=== PATIENT | female | born 1965 | race Caucasian/White ===

== ENCOUNTER 2017-07-06 15:31 | Emergency (ER) | payer OTHER ==
[~2017-07-06] VITALS: Ht 162.6 cm; Wt 79.4 kg
[~2017-07-06 15:31] MED LIST: ACETAMINOPHEN-1 EAC1 PO; ALBUTEROL2.5 MG/31 INH; AMBIEN 5 MG TABL5 M1 PO; AMLODIPINE BESY10 MG PO; AMOXICILLIN875 MG PO; ASPIR 8181 MG PO; ATORVASTATIN CA40 MG PO; BP MEDS; BREO ELLIPTA 11 EACH INH; CARAFATE 1 GM TA1 G1 PO; CARVEDILOL12.5 MG PO; CIPROFLOXACIN500 M1 PO; CLONIDINE0.1 PO; COREG25 MG PO; COREG6.25 MG PO; CRESTOR10 MG PO; DIFLUCAN150 MG PO; DUONEB 2.5-0.5 M3 ML INH; FLAGYL500 MG PO; HYDROCHLOROTHIA25 M2 PO; HYDROCODONE-AP1 EAC6 PO; IBUPROFEN 400400 M2 PO; KEFLEX500 MG PO; KLOR-CON 1010 MEQ PO; LASIX 20 MG TAB20 MG PO; LEVAQUIN 500 M500 M1 PO; LEVAQUIN 500 M500 M2 PO; LEVAQUIN 500 M500 MG PO; LIPITOR 20 MG T20 M1 PO; LORTAB 5 MG/5001 TA1 PO; MAXZIDE-25 MG1 EACH PO; MUCINEX TA600 MG/TA1 PO; NORVASC5 MG PO; NYSTATIN 1100000 U/M SW&SWALLOW; OMEPRAZOLE; OPANA10 MG PO; OXYCONTIN10 M1 PO; PERCOCET 10-321 EACH PO; PERCOCET 5-3251 EACH PO; PERCOCET PO; PHENERGAN 25 MG25 M1 PO; PREDNISONE 10 M10 MG PO; PREDNISONE 20 M20 MG PO; PREDNISONE50 MG PO; PRILOSEC 20 MG20 MG PO; PROAIR HFA8.5 GM INH; PROTONIX40 M1 PO; PROTONIX40 M2; PYRIDIUM200 MG PO; SPIRIVA; TRAMADOL 50 MG50 MG PO; TRIAMTERENE/HCT1 CA1 PO; VALIUM5 MG PO; VITAMIN B-1100 M1 PO; ZOFRAN ODT4 MG PO; ZOFRAN4 MG PO
[2017-07-06] MEDS ORDERED: POTASSIUM20 PO (15:41)
[2017-07-06 16:10] LABS: ABSOLUTE BASOPHILS 0.1 thou/uL (0.0-0.2); ABSOLUTE EOSINOPHILS 0.3 thou/uL (0.0-0.7); ABSOLUTE LYMPHOCYTES 3.3 thou/uL (0.8-5.3); ABSOLUTE MONOCYTES 0.6 thou/uL (0.0-1.2); ABSOLUTE NEUTROPHILS 6.3 thou/uL (1.6-8.1); BASOPHILS 0.7 %; EOSINOPHILS 2.5 %; HEMATOCRIT 41.5 % (37.0-47.0); HEMOGLOBIN 14.2 gm/dL (12.0-15.0); LYMPHOCYTES 31.1 %; MCHC 34.3 g/dL (28.0-37.0); MCV 96.2 fL (80.0-100.0); MONOCYTES 5.5 %; MPV 10.1 fl. (7.2-11.1); NUCLEATED RBCS 0 /100WBC; PLATELET COUNT* 209 thou/uL (150-400); POLYS 60.2 %; RBC 4.31 mil/uL (4.20-5.00); RDW-CV 13.8 % (10.5-14.5); WBC 10.5 thou/uL (4.0-11.0)
[2017-07-06 16:24] LABS: APTT 27.8 Seconds (25.0-31.3); PROTIME 9.3 Seconds (9.20-11.50)
[2017-07-06 17:01] LABS: ANION GAP 9 mmol/L (7-16); BUN 12 mg/dL (7-18); CALCIUM 9.1 mg/dL (8.5-10.1); CHLORIDE 102 mmol/L (98-107); CO2 30 mmol/L (21-32); GLUCOSE 109 mg/dL (70-99); POTASSIUM 3.7 mmol/L (3.5-5.1); SODIUM 141 mmol/L (136-145)
[2017-07-06 17:11] LABS: ALBUMIN 3.6 g/dL (3.4-5.0); ALKALINE PHOSPHATASE 75 U/L (46-116); LIPASE 104 U/L (73-393); NT-PRO BRAIN NAT PEPTIDE 719 pg/mL (<300); SGOT 22 U/L (15-37); SGPT 33 U/L (30-65); TOTAL BILIRUBIN 0.5 mg/dL (<0.1-1.0); TOTAL PROTEIN 7.1 g/dL (6.4-8.2); TROPONIN-I LEVEL <0.06 ng/mL (<0.06)
[2017-07-06 17:14] LABS: BE 7.4 mmol/L (-2 to +3); HCO3 31.2 mmol/L (22.0-26.0); PCO2 40.7 mmHg (35.0-45.0); pH 7.502 (7.340-7.450)
[2017-07-06] MEDS ORDERED: MEDROLDOSEPACK PO (18:28)
[2017-07-06] MEDS ORDERED: AZITHROMYCIN 2250 MG PO (18:28)
[2017-07-06] MEDS ORDERED: ACETAMINOPHEN-1 EAC1 PO (18:38)
[2017-07-06 18:40] VITALS: BP 161/71
--- NOTE | 2017-07-07 10:52 | EKG ---
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 : 1965 Requested By: Amparo Franco Order Number: [id number] MD: Alexis Juares Measurements Intervals [place] Rate: 76 P: 0 WV: 204 QRS: 58 QRSD: 91 T: 231 QT: 445 QTc: 501 Interpretive Statements Sinus rhythm Borderline prolonged WV interval Probable LVH with secondary repol abnrm Probable inferior infarct, age indeterminate Anterolateral infarct, age indeterminate Baseline wander in lead(s) V1 Compared to ECG 05/05/2017 09:11:51 Myocardial infarct finding now present Electronically Signed On 07-07-2017 10:52:34 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
== END 2017-07-06 18:42 | disposition home or self-care (01) ==
LOC: M.ERS 15:31
PROVIDERS: Personal Emergency Response Attendant
DX: J44.1 Chronic obstructive pulmonary disease with (acute) exacerbation (principal); I10 Essential (primary) hypertension; F41.9 Anxiety disorder, unspecified; F17.210 Nicotine dependence, cigarettes, uncomplicated; Z90.710 Acquired absence of both cervix and uterus; Z90.49 Acquired absence of other specified parts of digestive tract; Z91.041 Radiographic dye allergy status

== ENCOUNTER 2017-10-10 10:35 | Emergency (ER) | payer OTHER ==
[~2017-10-10] VITALS: Ht 162.6 cm; Wt 81.7 kg
[~2017-10-10 10:35] MED LIST changes: +AZITHROMYCIN 2250 MG PO; +MEDROLDOSEPACK PO; +POTASSIUM20 PO
[2017-10-10] MEDS ORDERED: PREDNISONE50 MG PO (12:29)
[2017-10-10] MEDS ORDERED: LEVAQUIN 750 M750 MG PO (12:29)
[2017-10-10 12:45] VITALS: BP 151/73
--- NOTE | 2017-10-10 17:10 | EKG ---
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: Kelly CASTELLANO : 1965 Requested By: Cherrie Palmer Order Number: [id number] MD: Ted Lee Measurements Intervals [place] Rate: 63 P: 37 MN: 186 QRS: -3 QRSD: 91 T: 157 QT: 471 QTc: 483 Interpretive Statements Sinus rhythm LVH with secondary repolarization abnormality Compared to ECG 07/06/2017 15:37:02 Myocardial infarct finding no longer present Myocardial infarct finding no longer present Electronically Signed On 10-10-2017 17:10:22 CDT by Ted Lee [email or web address] <ELECTRONICALLY SIGNED> By: Ted Lee MD, [facility] 10/10/17 1710 1131 1131 Ted Lee MD, [facility] /EPI
== END 2017-10-10 12:50 | disposition home or self-care (01) ==
LOC: M.ERS 10:35
DX: J40 Bronchitis, not specified as acute or chronic (principal); I10 Essential (primary) hypertension; F41.9 Anxiety disorder, unspecified; J44.9 Chronic obstructive pulmonary disease, unspecified; F17.210 Nicotine dependence, cigarettes, uncomplicated; Z90.49 Acquired absence of other specified parts of digestive tract; Z90.710 Acquired absence of both cervix and uterus; Z91.041 Radiographic dye allergy status

== ENCOUNTER 2018-02-27 14:24 | Inpatient (IN) | payer OTHER ==
[~2018-02-27] VITALS: Ht 162.6 cm; Wt 62.6 kg
--- NOTE | ~2018-02-27 | PROC ---
[address] [address] PROCEDURE REPORT Name: HECTOR RENNER Room: [place] [address] ADM IN .R.#: [id number] Admission: 02/27/18 Attend Phys: Clifton Reid Discharge: Date of : 61 Report #: [id number] THIS REPORT FOR: //name// For GI report, please see Provation report in Perceptive 7 content. By: [id number] Records Staff [facility] /ALEX
--- NOTE | ~2018-02-27 | CON ---
[address] [address] CONSULTATION Name: JUDHECTOR J Room: [place] [address] ADM IN ..#: [id number] Admission: 02/27/18 Attend Phys: Clifton Reid Discharge: Date of : 61 Report #: [id number] THIS REPORT FOR: //name// CC: Arnold Eugene DO DATE OF SERVICE: 03/01/2018 REASON FOR CONSULT: Severe epigastric pain. REQUESTING PHYSICIAN: Jovi Eugene DO. HISTORY OF PRESENT ILLNESS: This is a 52-year-old female with history of cardiomyopathy and pancreatitis in the past who presents with severe epigastric pain. Since admission, the patient had labs, which showed normal lipase of [address] of abdomen and pelvis, which was essentially unremarkable for pancreas and biliary tree. She had history of gallbladder disease and status post cholecystectomy more than 10 years ago. She takes double dose of omeprazole 20 mg b.i.d. for chronic reflux disease. She admits that she has not been scoped for more than 10 years ago. PAST MEDICAL HISTORY: Significant for history of pancreatitis, gastroesophageal reflux disease, cardiomyopathy, hyperlipidemia, insomnia, chronic pain, and asthma. She also has history of gallbladder disease, status post cholecystectomy, hysterectomy, left nephrectomy in 1999, status post ICD placement and coronary artery disease status post ID in 09/2016. ALLERGIES: SIGNIFICANT TO CODEINE AND ATROVENT. MEDICATIONS: Please refer to hospital [facility]. SOCIAL HISTORY: The patient is a former smoker, but has not smoked more than a year ago. She denies alcohol use. FAMILY HISTORY: Negative for GI malignancy. PHYSICAL EXAMINATION: VITAL SIGNS: Reveals blood pressure of 118/55, respirations 18, pulse 60, temperature 98.2. LUNGS: Clear. CARDIOVASCULAR: Regular. ABDOMEN: Soft, tender to palpation in epigastric region. Bowel sounds are positive. NEUROLOGIC: The patient is alert and oriented x 3[place] [address] CONSULTATION Name: HECTOR RENNER Room: [address] IN [facility]#: [id number] Admission: 02/27/18 Attend Phys: Clifton Reid Discharge: Date of : 61 Report #: [id number] LABORATORY DATA: Reveal sodium of 136, potassium 3.9, BUN is 13, creatinine is 1.1, glucose is 112. Liver function tests are within normal limits. WBC is 8.3 with hemoglobin of 14 and platelet of 127. IMAGING: CT of abdomen and pelvis was obtained as discussed above. ASSESSMENT AND PLAN: The patient with long history of gastroesophageal reflux disease, on double dose of omeprazole 20. We will proceed with upper endoscopy as her pain may be due to esophageal spasm due to poor reflux control, gastritis, esophagitis, gastroduodenal ulcer. The patient also admits that she has not had a colonoscopy for more than 10 years, we will consider that as outpatient. By: 1431 [id number] Mayorga MD /ligia
[~2018-02-27 14:24] MED LIST changes: +LEVAQUIN 750 M750 MG PO
[2018-02-27 14:27] VITALS: BP 148/64
[2018-02-27] MEDS ORDERED: NORCO 5-325 TA1 EACH PO (14:33)
[2018-02-27] MEDS ORDERED: AMBIEN 5 MG TABL5 M1 PO (14:33)
[2018-02-27] MEDS ORDERED: TRAMADOL 50 MG50 MG PO (14:33)
[2018-02-27 14:58] LABS: ABSOLUTE BASOPHILS 0.1 thou/uL (0.0-0.2); ABSOLUTE EOSINOPHILS 0.3 thou/uL (0.0-0.7); ABSOLUTE LYMPHOCYTES 3.6 thou/uL (0.8-5.3); ABSOLUTE MONOCYTES 0.5 thou/uL (0.0-1.2); ABSOLUTE NEUTROPHILS 6.5 thou/uL (1.6-8.1); EOSINOPHILS 2.4 %; HEMATOCRIT 46.5 % (37.0-47.0); LYMPHOCYTES 32.6 %; MCH 32.6 pg (26.0-34.0); MCHC 34.3 g/dL (28.0-37.0); MCV 94.9 fL (80.0-100.0); MONOCYTES 4.9 %; MPV 9.2 fl. (7.2-11.1); NUCLEATED RBCS 0 /100WBC; PLATELET COUNT* 197 thou/uL (150-400); POLYS 59.1 %; RDW-CV 14.3 % (10.5-14.5)
[2018-02-27 15:04] LABS: ANION GAP 8 mmol/L (7-16); BUN 13 mg/dL (7-18); CHLORIDE 99 mmol/L (98-107); CO2 29 mmol/L (21-32); CREATININE 1.1 mg/dL (0.6-1.3); GLUCOSE 112 mg/dL (70-99); POTASSIUM 3.9 mmol/L (3.5-5.1); SODIUM 136 mmol/L (136-145)
[2018-02-27 15:11] LABS: PROTIME 10.1 Seconds (9.20-11.50)
[2018-02-27 15:15] LABS: ALBUMIN 3.6 g/dL (3.4-5.0); ALKALINE PHOSPHATASE 84 U/L (46-116); LIPASE 120 U/L (73-393); NT-PRO BRAIN NAT PEPTIDE 356 pg/mL (<300); SGOT 30 U/L (15-37); SGPT 46 U/L (30-65); TOTAL BILIRUBIN 0.4 mg/dL (<0.1-1.0); TOTAL PROTEIN 7.3 g/dL (6.4-8.2); TROPONIN-I LEVEL <0.06 ng/mL (<0.06)
--- NOTE | 2018-02-27 17:17 | EKG ---
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 : 1965 Requested By: Mayank Bowen Order Number: [id number] MD: Alexis Juares Measurements Intervals [place] Rate: 71 P: 61 MD: 201 QRS: 31 QRSD: 95 T: 217 QT: 492 QTc: 535 Interpretive Statements Sinus rhythm Repol abnrm, severe global ischemia (LM/MVD) Prolonged QT interval Compared to ECG 10/10/2017 11:31:50 Possible ischemia now present Prolonged QT interval now present Left ventricular hypertrophy no longer present Electronically Signed On 02-27-2018 17:17:44 CDT by Alexis Juares [email or web address] <ELECTRONICALLY SIGNED> By: Alexis Juares MD, FACC 02/27/18 1717 1429 1429 Alexis Juares MD, [facility] /EPI
[2018-02-27 20:30] VITALS: BP 142/59
[2018-02-27 20:37] VITALS: BP 103/57
[2018-02-28 00:33] VITALS: BP 118/62
[2018-02-28 04:46] VITALS: BP 122/60
[2018-02-28 08:28] VITALS: BP 117/70
[2018-02-28 12:00] VITALS: BP 117/52
[2018-02-28 16:00] VITALS: BP 119/78
[2018-02-28 16:12] LABS: AMYLASE 43 U/L (25-115); LIPASE 100 U/L (73-393)
[2018-02-28 20:00] VITALS: BP 144/60
[2018-03-01] VITALS (7 sets, daily range): BP systolic 109–132; BP diastolic 53–79
[2018-03-01 08:51] LABS: ABSOLUTE EOSINOPHILS 0.2 thou/uL (0.0-0.7); ABSOLUTE LYMPHOCYTES 2.1 thou/uL (0.8-5.3); ABSOLUTE MONOCYTES 0.5 thou/uL (0.0-1.2); ABSOLUTE NEUTROPHILS 5.4 thou/uL (1.6-8.1); BASOPHILS 0.4 %; EOSINOPHILS 2.9 %; HEMATOCRIT 41.4 % (37.0-47.0); LYMPHOCYTES 25.8 %; MCH 32.5 pg (26.0-34.0); MCHC 33.7 g/dL (28.0-37.0); MCV 96.4 fL (80.0-100.0); MONOCYTES 5.8 %; MPV 9.4 fl. (7.2-11.1); NUCLEATED RBCS 0 /100WBC; PLATELET COUNT* 127 thou/uL (150-400); POLYS 65.1 %; RDW-CV 14.1 % (10.5-14.5); WBC 8.3 thou/uL (4.0-11.0)
--- NOTE | 2018-03-01 15:02 | EKG ---
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 : 1965 Requested By: Jovi Eugene Order Number: [id number] Sharon MD: Akbar Faust Measurements Intervals [place] Rate: 56 P: 53 VA: 209 QRS: 2 QRSD: 92 T: 184 QT: 489 QTc: 473 Interpretive Statements Sinus rhythm Borderline prolonged [place] interval LVH with secondary repolarization abnormality Compared to ECG 02/27/2018 14:29:40 Left ventricular hypertrophy now present Possible ischemia no longer present Prolonged QT interval no longer present Electronically Signed On 03-01-2018 15:02:38 CDT by Akbar Faust [email or web address] <ELECTRONICALLY SIGNED> By: Akbar Faust MD, FACC 03/01/18 1502 0626 0626 Akbar Faust MD, FACC /EPI
[2018-03-02] VITALS (7 sets, daily range): BP systolic 107–154; BP diastolic 55–84
[2018-03-02 11:54] LABS: HEMATOCRIT 39.7 % (37.0-47.0); HEMOGLOBIN 13.3 gm/dL (12.0-15.0); MCH 31.9 pg (26.0-34.0); MCHC 33.5 g/dL (28.0-37.0); MCV 95.3 fL (80.0-100.0); MPV 9.7 fl. (7.2-11.1); NUCLEATED RBCS 0 /100WBC; PLATELET COUNT* 128 thou/uL (150-400); RBC 4.17 mil/uL (4.20-5.00); RDW-CV 14.1 % (10.5-14.5); WBC 13.4 thou/uL (4.0-11.0)
[2018-03-02 12:09] LABS: ALBUMIN 3.4 g/dL (3.4-5.0); POTASSIUM 4.3 mmol/L (3.5-5.1); TOTAL BILIRUBIN 0.4 mg/dL (<0.1-1.0)
[2018-03-02 12:47] LABS: ABSOLUTE LYMPHOCYTES 1.1 thou/uL (0.8-5.3); ABSOLUTE NEUTROPHILS 12.3 thou/uL (1.6-8.1); PLATELET ESTIMATE ADEQUATE
--- NOTE | 2018-03-02 18:04 | 2DMMODE ---
[place] [address] 2 D/M-MODE ECHOCARDIOGRAM Name: HECTOR RENNER Room: [facility] ADM IN [facility]#: [id number] Admission: 02/27/18 Attend Phys: Jovi Eugene Discharge: Date of : 61 Date of Service: 03/02/18 1804 Report #: [id number] THIS REPORT FOR: //name// APPROVED REPORT Study performed: 03/02/2018 16:42:46 EXAM: Comprehensive 2D, Doppler, and color-flow Echocardiogram Patient Location: In-Patient Room #: 227 BSA: 1.86 HR: 93 bpm BP: 127/69 mmHg Other Information Study Quality: Fair Indications Abnormal ECG 2D Dimensions IVSd: 11.71 (7-11mm) LVOT Diam: 19.75 (18-24mm) LVDd: 35.71 mm PWd: 9.67 (7-11mm) Ascending Ao: 24.84 (22-36mm) LVDs: 23.98 (25-40mm) Aortic Root: 22.05 mm Volumes Left Atrial Volume (Systole) LA ESV Index: 28.30 mL/m2 Aortic Valve AoV Peak Paras.: 3.06 m/s AO Peak Gr.: 37.55 mmHg LVOT Max P.50 mmHg AO Mean Gr.: 21.31 mmHg LVOT Mean P.38 mmHg LVOT Max V: 1.27 m/s AO V2 VTI: 61.60 cm LVOT Mean V: 0.85 m/s HANS (VTI): 1.53 cm2 LVOT V1 VTI: 30.72 cm Mitral Valve MV Peak Gr.: 12.56 mmHg MV Mean Gr.: 7.00 mmHg MV Decel. Time: 209.16 ms MV PHT: 60.66 [place] [address] 2 D/M-MODE ECHOCARDIOGRAM Name: HECTOR RENNER Room: [address] IN [facility].#: [id number] Admission: 02/27/18 Attend Phys: Jovi Eugene Discharge: Date of : 61 Date of Service: 03/02/18 1804 Report #: [id number] MVA (PHT): 3.63 cm2 TDI Medial E' Paras.: 0.07 m/s Lateral E' Paras.: 0.08 m/s Pulmonary Valve PV Peak Paras.: 1.49 m/s PV Peak Gr.: 8.85 mmHg Tricuspid Valve RAP Estimate: 5.00 mmHg TR Peak Gr.: 36.45 mmHg RVSP: 41.45 mmHg PA Pressure: 41.45 mmHg Left Ventricle The left ventricle is normal size. There is normal LV segmental wall motion. There is normal left ventricular wall thickness. Left ventricular systolic function is normal. The left ventricular ejection fraction is within the normal range. LVEF is 60%. The left ventricular diastolic function is normal. Right Ventricle The right ventricle is normal size. The right ventricular systolic function is normal. Device lead is present in the right ventricle. Atria The left atrium size is normal. The right atrium size is normal. Aortic Valve Mild aortic valve sclerosis. No aortic regurgitation is present. There is no aortic valvular stenosis. Mitral Valve The mitral valve is normal in structure. Mild to moderate mitral regurgitation. No evidence of mitral valve stenosis. Tricuspid Valve The tricuspid valve is normal in structure. Mild tricuspid regurgitation. Pulmonic Valve The pulmonary valve is normal in structure. There is no pulmonic valvular regurgitation. [place] [address] 2 D/M-MODE ECHOCARDIOGRAM Name: HECTOR RENNER Room: [address] IN [facility]#: [id number] Admission: 02/27/18 Attend Phys: Jovi Eugene Discharge: Date of : 61 Date of Service: 03/02/18 1804 Report #: [id number] The aortic root is normal in size. IVC is normal in size and collapses >50% with inspiration. Pericardium There is no pericardial effusion. <Conclusion> The left ventricle is normal size. Left ventricular systolic function is normal. The left ventricular ejection fraction is within the normal range. LVEF is 60%. The right ventricle is normal size. The left atrium size is normal. Mild aortic valve sclerosis. No aortic regurgitation is present. There is no aortic valvular stenosis. The mitral valve is normal in structure. Mild to moderate mitral regurgitation. No evidence of mitral valve stenosis. The tricuspid valve is normal in structure. Mild tricuspid regurgitation. The aortic root is normal in size. IVC is normal in size and collapses >50% with inspiration. There is no pericardial effusion. There is normal LV segmental wall motion. Device lead is present in the right ventricle. <ELECTRONICALLY SIGNED> By: Josiah Cee MD, FACC 03/02/181803 03 03 Josiah Cee MD, FACC /INF
[2018-03-03] VITALS (9 sets, daily range): BP systolic 123–198; BP diastolic 71–101
[2018-03-03] MEDS ORDERED: LISINOPRIL40 MG PO (11:57)
[2018-03-03] MEDS ORDERED: ALPRAZOLAM0.5 M2 PO (11:57)
[2018-03-03] MEDS ORDERED: BENTYL 20 MG TA20 M1 PO (11:57)
[2018-03-03] MEDS ORDERED: NORVASC5 MG PO ×2 (11:58→14:36)
[2018-03-03] MEDS ORDERED: ALBUTEROL2.5 MG/31 INH (12:40)
--- NOTE | 2018-03-03 16:52 | EKG ---
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: : 1965 Requested By: Jovi Eugene Order Number: [id number] Sharon MD: Josiah Cee Measurements Intervals [place] Rate: 77 P: 50 [place]: 200 QRS: -8 QRSD: 92 T: 188 QT: 423 QTc: 479 Interpretive Statements Sinus rhythm LVH with secondary repolarization abnormality; consider ischemia Anterior Q waves, possibly due to LVH Compared to ECG 03/01/2018 06:26:50 Q waves now present Electronically Signed On 03-03-2018 16:52:38 CDT by Josiah Cee [email or web address] <ELECTRONICALLY SIGNED> By: Josiah Cee MD, [facility] 03/03/18 1652 1748 1748 Josiah Cee MD, [facility] /EPI
[2018-03-04] VITALS: BP 100/49
[2018-03-04 04:00] VITALS: BP 139/68
[2018-03-04 07:53] VITALS: BP 135/78
[2018-03-04 12:00] VITALS: BP 144/64
[2018-03-04 16:00] VITALS: BP 115/57
[2018-03-04 20:00] VITALS: BP 122/55
[2018-03-05] VITALS: BP 121/67
[2018-03-05 04:00] VITALS: BP 130/61
[2018-03-05 08:00] VITALS: BP 158/69
[2018-03-05 11:35] VITALS: BP 106/57
[2018-03-05 15:35] VITALS: BP 136/72
[2018-03-05 20:00] VITALS: BP 164/81
[2018-03-06] VITALS: BP 127/61
[2018-03-06 04:00] VITALS: BP 141/69
[2018-03-06 04:51] LABS: ABSOLUTE LYMPHOCYTES 1.1 thou/uL (0.8-5.3); ABSOLUTE MONOCYTES 0.3 thou/uL (0.0-1.2); ABSOLUTE NEUTROPHILS 9.2 thou/uL (1.6-8.1); BASOPHILS 0.1 %; HEMATOCRIT 34.7 % (37.0-47.0); HEMOGLOBIN 11.8 gm/dL (12.0-15.0); LYMPHOCYTES 10.3 %; MCH 32.4 pg (26.0-34.0); MCHC 34.1 g/dL (28.0-37.0); MCV 95.2 fL (80.0-100.0); MONOCYTES 2.4 %; MPV 11.5 fl. (7.2-11.1); NUCLEATED RBCS 0 /100WBC; PLATELET COUNT* 142 thou/uL (150-400); POLYS 87.2 %; RBC 3.65 mil/uL (4.20-5.00); RDW-CV 14.1 % (10.5-14.5); WBC 10.6 thou/uL (4.0-11.0)
[2018-03-06 05:16] LABS: CALCIUM 8.4 mg/dL (8.5-10.1); CREATININE 0.9 mg/dL (0.6-1.3); POTASSIUM 4.1 mmol/L (3.5-5.1)
[2018-03-06 08:00] VITALS: BP 160/60
--- NOTE | 2018-03-06 08:00 | CON ---
[address] [address] CONSULTATION Name: HECTOR RENNER Room: [place] [address] ADM IN .R.#: [id number] Admission: 02/27/18 Attend Phys: Clifton Reid Discharge: Date of : 61 Report #: [id number] THIS REPORT FOR: //name// CC: Arnold Eugene DATE OF SERVICE: 03/05/2018 REASON FOR CONSULTATION: Pneumonia. DISCUSSION: The patient is a 52-year-old woman who has a history of tobacco abuse. Probably also has some underlying obstructive lung disease. She has a history of pancreatitis in the past, as well as hypertrophic cardiomyopathy and does have defibrillator in place. She presented to the emergency department with complaints of pain around her epigastric area going through to the back. Pain was similar to what she had in the past with pancreatitis and she was concerned. Did have a fairly extensive evaluation done while she was here. This included both GI and her cardiology. Generally was thought to be stable. She had a fairly unremarkable EGD other than retained food noted. However, her gastric emptying time was normal. Yesterday, she notes she was feeling overall more congested. Though she has had some cough, really was not coughing up any sputum. Again having some bloody secretions. She had a CT angiogram done yesterday. It was negative for PE. However, does show some nodular infiltrates and small pleural effusions. We were asked to see her. Do note, however, this scan was not compared to CT scan done last year. She has been up to 2 packs of cigarettes per day in the past. Now, however, she smokes about a cigarette per week. Hypertrophic cardiomyopathy is noted. She had cardiac arrest in the spring. This was also complicated by bilateral pneumothoraces and she was on the ventilator for a period of time. This was at [facility] and group did see her at that time. She was hospitalized here almost a year ago and also was on the ventilator short term, but was able to be successfully extubated. Normally at home, she is not on any inhalers. She is not on any oxygen. She has seen a research instrumentation technician at [facility]. Had recent breathing test done and was told "things were okay." She denies having any outpatient CT scans done. She does have a nebulizer at home. However, she notes typically she does not have significant issues. Tends to be worse fall and winter months. She has many grandchildren. When they are ill, she does catch it easily. She has had her flu shot. She has not had prior bronchoscopies in the past for any reason[place] [address] CONSULTATION Name: HECTOR RENNER Kelly Room: 227-[address] [facility] IN .R.#: [id number] Admission: 02/27/18 Attend Phys: Clifton Reid Discharge: Date of : 61 Report #: [id number] PAST MEDICAL HISTORY: Besides the hypertrophic cardiomyopathy with subsequent defibrillator placement is also remarkable for a left nephrectomy done in the year 1999. She was a kidney donor for her son. She has also had a prior hysterectomy, cholecystectomy. HOME MEDICATIONS: Have been the p.r.n. albuterol, atorvastatin, Coreg, Norvasc, lisinopril, baby aspirin, p.r.n. tramadol, p.r.n. [place], and p.r.n. alprazolam. SOCIAL HISTORY: She is . Her smokes as well, but they will typically smoke outside. FAMILY HISTORY: Positive for kidney disease. Also lung cancer in the family and breast cancer, as well as COPD. REVIEW OF SYSTEMS: A 12-point ROS was done. No positives as above. She has continued intermittently to have pain over the last year or so, which is intermittent. Apparently is essentially substernal epigastric and will radiate to the back. At times, it is excruciating. Other times, it is not too bad. It is intermittent, does not appear to be anything in particular that brings it on. She typically does not have much in the way of any cough or sputum production. She has never had hemoptysis in the past. She has not noted any blood in her stools. She does tend to fill up when she eats. She has not had any recent vomiting. Had not felt like she has had any actual fevers at home. No lower extremity edema. PHYSICAL EXAMINATION: GENERAL APPEARANCE: A woman who looks stated age, comfortable at rest. HEENT: Head is normocephalic and sclerae are nonicteric. Mucous membranes are negative for thrush. NECK: Negative for adenopathy. No JVD is noted. No supraclavicular adenopathy is noted. Her defibrillator is palpable on her left upper chest wall anteriorly. HEART: Regular. No S3 is heard. She has a grade 1/6 systolic murmur. LUNGS: Sounds reveal some rhonchi heard primarily in the lower lung rojas. Does not clear with cough. There is no dullness to percussion. No E to A changes. No chest wall abnormalities are noted. SKIN: Warm and dry. She has no clubbing. ABDOMEN: Mildly obese, but soft without hepatosplenomegaly. EXTREMITIES: Lower extremities are negative for significant edema. SKIN: Warm and dry. NEUROLOGIC: She is alert and oriented times 3. LABORATORY AND X-RAY FINDINGS: X-rays were reviewed. Her initial chest x-ray coming in was negative for acute findings. CT angiogram done yesterday is noted, was negative for PE. She does have small pleural [place] [address] CONSULTATION Name: JUDHECTOR Kelly Room: [address] IN [facility]#: [id number] Admission: 02/27/18 Attend Phys: Clifton Reid Discharge: Date of : 61 Report #: [id number] have infiltrative changes seen in lower lung rojas, left greater than the right. Some of these are somewhat nodular. Reviewing CT, which was done just over a year ago, some of these findings are similar. Some of them; however, more pronounced. She has had no cultures done this admission. On her chemistry, last one, her sodium was 137, potassium 4.3, BUN of 10 with a creatinine of 1.0. Coag studies several days ago revealed a normal INR. White blood cell count several days ago was 13,400 with a hemoglobin of 13.3, hematocrit of 39.7, platelets 128,000. CRP several days ago was 11.8. Echocardiogram done this admission revealed normal systolic function. EF was 60%. She had normal LV wall thickness. She had gvfr-bv-mahoktpy mitral regurgitation. No aortic disease. IMPRESSION: 1. Non-massive hemoptysis. I suspect she has a lower respiratory tract infection. At baseline, she has some chronic changes on her chest x-ray/CT scan. It will be important to treat the infection and have followup imaging in the future. May be viral. 2. Chronic obstructive pulmonary disease, suspected mild based on her history. 3. History of hypertrophic cardiomyopathy. Her most recent echocardiogram was fairly unremarkable. Does have a history of prior cardiopulmonary arrest. 4. History of bilateral pneumothoraces. 5. Remote history of pancreatitis. 6. History of tobacco abuse. Still occasionally smokes. RECOMMENDATIONS: 1. Agree with coverage with antibiotics. She is currently on oral steroids, but we will add 24 hours of IV steroids. 2. We will also check a respiratory viral panel. 3. Chest x-ray PA and lateral tomorrow. 4. Follow up lab tomorrow. 5. Long-term needs some additional imaging done. Followup CT scan etc. <ELECTRONICALLY SIGNED> By: Daphne Abarca MD 03/06/18 0800 1114 0233Daphne Abarca MD /nt
--- NOTE | 2018-03-06 11:39 | CON ---
[address] [address] CONSULTATION Name: HECTOR RENNER Kelly Room: [place] [address] ADM IN .R.#: [id number] Admission: 02/27/18 Attend Phys: Clifton Reid Discharge: Date of : 61 Report #: [id number] THIS REPORT FOR: //name// CC: [facility] Cardiology Consultation INDICATION: Acute epigastric pain. HISTORY OF PRESENT ILLNESS: The patient is a 52-year-old white female who is well known to myself. She has a history of hypertrophic obstructive cardiomyopathy that we have been managing medically. She has a history out of hospital ventricular arrest, status post ICD placement for secondary prevention. By echocardiogram, she has normal LV systolic function. She has a [id number] gradient across left ventricular outflow tract. On physical exam today, her murmur has not changed appreciably. She reports acute onset epigastric pain yesterday at 1:30 p.m. The pain has been persistent. Her troponins are all less than 0.06. Her EKG shows sinus rhythm with LVH and repolarization abnormalities, but is not significantly changed from her baseline EKG. She has been given multiple medications including GI cocktail without relief of her pain. She is without other cardiac complaint at this time. PAST MEDICAL HISTORY: 1. Coronary artery disease. 2. Hypertension. 3. Hyperlipidemia. 4. Hypertrophic obstructive cardiomyopathy. 5. Remote history of pancreatitis. PAST SURGICAL HISTORY: 1. Appendectomy. 2. Nephrectomy. 3. Cholecystectomy. 4. Tonsillectomy. ALLERGIES: None. CURRENT MEDICATIONS: Carvedilol 25 mg p.o. b.i.d., Prilosec 20 mg p.o. b.i.d., aspirin 81 mg daily, Lipitor 20 mg daily. SOCIAL HISTORY: The patient is . She smokes half pack of cigarettes daily. She drinks 2-4 [place] [address] CONSULTATION Name: HECTOR RENNER Room: [address] IN [facility]#: [id number] Admission: 02/27/18 Attend Phys: Clifton Reid Discharge: Date of : 61 Report #: [id number] REVIEW OF SYSTEMS: On 14-point review of systems, she reports cough, history of asthma, midepigastric pain, dyspnea, history of heart murmur, CONTRAST ALLERGY, history of anxiety without depression, and dentures. Otherwise, 14-point review of systems unremarkable. PHYSICAL EXAMINATION: VITAL SIGNS: Stable. Blood pressure 117/52, pulse 55 and regular. GENERAL: This is a pleasant lady, in mild distress from her mid epigastric discomfort. HEENT: Normocephalic, atraumatic. Pupils equal, round, react to light. Extraocular muscles intact. Mucous membranes are moist. NECK: Shows no jugular venous distention. There are no carotid bruits. CHEST: Reveals clear lung rojas. CARDIAC: Reveals a regular rhythm with soft grade 1 to 2/6 systolic ejection murmur, heard best at the right upper sternal border. There is no gallop. ABDOMEN: Reveals significant tenderness in the epigastric region. There is no rebound. Bowel sounds are present. EXTREMITIES: Show no clubbing, cyanosis or edema. Peripheral pulses palpable. DIAGNOSTIC DATA: A 12-lead EKG shows sinus rhythm with left ventricular hypertrophy and repolarization abnormalities, which is at her baseline. Troponins as outlined above are unremarkable. IMAGING DATA: CT abdomen shows evidence of gas in the pancreatic duct. IMPRESSION AND RECOMMENDATIONS: 1. Midepigastric pain, noncardiac. 2. Hypertrophic obstructive cardiomyopathy, stable. 3. Hypertension, stable. 4. Hyperlipidemia. Continue atorvastatin as an outpatient. 5. Implantable cardioverter defibrillator functioning normally by remote interrogations. 6. Tobacco use, cessation discussed. 7. The patient is stable from cardiac standpoint. We will recommend gastroenterological evaluation. <ELECTRONICALLY SIGNED> By: Akbar Faust MD, FACC 03/06/18 1139 1520 [id number] Faust MD, FACC /nt
[2018-03-06] MEDS ORDERED: DOXYCYCLINE 10100 MG PO (11:50)
[2018-03-06] MEDS ORDERED: PREDNISONE 10 M10 MG PO (11:51)
[2018-03-06 12:00] VITALS: BP 198/101
[2018-03-09 23:10] LABS: ADENOVIRUS Negative (Negative); INFLUENZA A Negative (Negative); INFLUENZA B Negative (Negative); METAPNEUMOVIRUS Negative (Negative); PARAINFLUENZA 1 Negative (Negative); PARAINFLUENZA 2 Negative (Negative); PARAINFLUENZA 3 Negative (Negative); RHINOVIRUS Negative (Negative); RSV A Negative (Negative); RSV B Negative (Negative)
--- NOTE | 2018-03-27 14:58 | PATH ---
[address] [address] PATHOLOGY RPT PROCEDURE Name: HECTOR RENNER Room: [address] IN M.R.#: [id number] Admission: 02/27/18 Date of : 61 Discharge: 03/06/18 Report #: [id number] Path Case #: [id number] [facility] Accession Number: [id number] . 01 Material submitted: . GASTRIC BIOPSY FOR H. PYLORI . 01 Clinical history: . None provided . 02 Diagnosis: Gastric, biopsy: - Mild chronic inactive gastritis. - An H. pylori immunostain is negative (block A1; appropriate controls). . (MAP:[facility]; 03/03/18) [facility]/03/03/2018 . 02 Electronically signed: . Akbar Marie MD, Pathologist NPI- [id number] . 01 Gross description: . Received in formalin labeled "Hector Renner, gastric biopsy for H. pylori," are 3 segments of martinez soft tissue measuring 0.9 x 0.6 x 0.2 cm in aggregate dimensions and ranging from 0.3 to 0.6 cm in maximum dimension. The specimen is submitted entirely in cassette A1. (TSD; 03/02/2018) TOB/TOB . 02 Pathologist provided ICD-10: K29.50 . 02 CPT . 887783, F39012 Specimen Comment: Report sent to ,DR WEEKS,DR LAWSON / Specimen Comment: DR VASQUEZ Performed at: [address], [place], [place] [id number] MD Quinn Munguia MD Phone: [phone] Performed at: [address] [place] [address] [address], [place], [place] [id number] MD Hector Grissom MD Phone: [phone]
== END 2018-03-06 12:15 | disposition home or self-care (01) | DRG 391 ==
LOC: M.ERS 14:24 → M.TBA-ER 15:33 → M.2W 15:33
PROVIDERS: Emergency Medicine; Internal Medicine Cardiovascular Disease; Internal Medicine Pulmonary Disease; ADMIT Internal Medicine
PROC: 0DB78ZX Excision of Stomach, Pylorus, Via Natural or Artificial Opening Endoscopic, Diagnostic (ICD-10-PCS; principal; 2018-03-02)
DX: K29.00 Acute gastritis without bleeding (principal); J96.01 Acute respiratory failure with hypoxia; J15.9 Unspecified bacterial pneumonia; I42.1 Obstructive hypertrophic cardiomyopathy; R04.2 Hemoptysis; J44.0 Chronic obstructive pulmonary disease with (acute) lower respiratory infection; I25.10 Atherosclerotic heart disease of native coronary artery without angina pectoris; E78.5 Hyperlipidemia, unspecified; F17.210 Nicotine dependence, cigarettes, uncomplicated; K21.9 Gastro-esophageal reflux disease without esophagitis; G47.00 Insomnia, unspecified; G89.29 Other chronic pain; I11.0 Hypertensive heart disease with heart failure; J45.909 Unspecified asthma, uncomplicated; I50.9 Heart failure, unspecified; F41.9 Anxiety disorder, unspecified; Z90.5 Acquired absence of kidney; Z90.710 Acquired absence of both cervix and uterus; Z90.49 Acquired absence of other specified parts of digestive tract; Z95.828 Presence of other vascular implants and grafts; I25.2 Old myocardial infarction; Z91.041 Radiographic dye allergy status; Z88.6 Allergy status to analgesic agent; Z88.8 Allergy status to other drugs, medicaments and biological substances; Z84.1 Family history of disorders of kidney and ureter; Z80.1 Family history of malignant neoplasm of trachea, bronchus and lung; Z80.3 Family history of malignant neoplasm of breast; Z82.49 Family history of ischemic heart disease and other diseases of the circulatory system; Z79.899 Other long term (current) drug therapy; Z79.82 Long term (current) use of aspirin; Z23 Encounter for immunization

== ENCOUNTER 2018-04-30 15:07 | Inpatient (IN) | payer OTHER ==
[~2018-04-30] VITALS: Ht 162.6 cm; Wt 80.7 kg
--- NOTE | 2018-04-30 00:15 | NUR ---
ASSESSMENT COMPLETED AT START OF SHIFT. SEE COMPUTER CHARTING FOR FURTHER DETAIL. PT C/O HEADACHE AND CHEST TIGHTNESS. B/P HAS BEEN STABLE. TRACING SR WITH 1ST DEGREE BLOCK ON MONITOR. PT DENIES ANY FURTHER NEEDS AT THIS TIME. CLWR.
[~2018-04-30 15:07] MED LIST changes: +ALPRAZOLAM0.5 M2 PO; +BENTYL 20 MG TA20 M1 PO; +DOXYCYCLINE 10100 MG PO; +LISINOPRIL40 MG PO; +NORCO 5-325 TA1 EACH PO
[2018-04-30 15:12] VITALS: BP 208/108
[2018-04-30] MEDS ORDERED: CARDIZEM CD120 MG PO (15:20)
[2018-04-30 15:37] LABS: ABSOLUTE BASOPHILS 0.1 thou/uL (0.0-0.2); ABSOLUTE EOSINOPHILS 0.3 thou/uL (0.0-0.7); ABSOLUTE LYMPHOCYTES 2.6 thou/uL (0.8-5.3); ABSOLUTE MONOCYTES 0.3 thou/uL (0.0-1.2); ABSOLUTE NEUTROPHILS 3.8 thou/uL (1.6-8.1); BASOPHILS 0.9 %; EOSINOPHILS 4.5 %; HEMATOCRIT 42.2 % (37.0-47.0); HEMOGLOBIN 14.4 gm/dL (12.0-15.0); LYMPHOCYTES 36.6 %; MCH 32.5 pg (26.0-34.0); MCHC 34.2 g/dL (28.0-37.0); MONOCYTES 4.7 %; MPV 10.8 fl. (7.2-11.1); NUCLEATED RBCS 0 /100WBC; PLATELET COUNT* 163 thou/uL (150-400); POLYS 53.3 %; RBC 4.44 mil/uL (4.20-5.00); RDW-CV 14.3 % (10.5-14.5)
[2018-04-30 15:46] LABS: ANION GAP 11 mmol/L (7-16); APTT 29.4 Seconds (25.0-31.3); BUN 5 mg/dL (7-18); CALCIUM 9.2 mg/dL (8.5-10.1); CHLORIDE 104 mmol/L (98-107); CO2 25 mmol/L (21-32); CREATININE 1.1 mg/dL (0.6-1.3); GLUCOSE 100 mg/dL (70-99); POTASSIUM 3.8 mmol/L (3.5-5.1); SODIUM 140 mmol/L (136-145)
[2018-04-30 16:05] LABS: ALBUMIN 3.8 g/dL (3.4-5.0); ALKALINE PHOSPHATASE 83 U/L (46-116); CK-MB MASS 1.3 ng/mL (<0.5-3.6); LIPASE 154 U/L (73-393); MAGNESIUM 1.5 mg/dL (1.8-2.4); NT-PRO BRAIN NAT PEPTIDE 936 pg/mL (<300); SGOT 20 U/L (15-37); SGPT 19 U/L (30-65); TOTAL BILIRUBIN 0.5 mg/dL (<0.1-1.0); TOTAL PROTEIN 7.5 g/dL (6.4-8.2); TROPONIN-I LEVEL <0.06 ng/mL (<0.06)
[2018-04-30 17:05] VITALS: BP 178/86
[2018-04-30 17:15] VITALS: BP 170/86
[2018-04-30 17:20] VITALS: BP 170/85
[2018-04-30 19:00] VITALS: BP 136/76
--- NOTE | 2018-04-30 19:08 | NUR ---
PT. ARRIVED ON UNIT AT APPROX. 1715. PT A/OX4, BP REMAINS ELEVATED AT 170'S/80'S BILATERALLY. ON 2L NC, CHECKED RA SAT. AT 97% BUT PT. C/O OF SOB AT TIMES SO PLACED ON 2L FOR COMFORT. FULL ASSESSMENT AND ADMISSION PROCESS COMPLETED, REFER TO CHARTING. PT. REPORTS HER BP WAS HIGH WHEN SHE WOKE UP THIS MORNING WITH A HORRIBLE HEADACHE. SHE HAS SINCE ALSO BEEN HAVING PAIN IN CHEST WHICH IS PRESSURE IN NATURE AND ON LEFT SIDE OF NECK AND ARM. PT REPORTS COMING IN TO ER AT DR. SHEA REQUEST. IVF'S STARTED PER ORDERS ALONG WITH MAGNESIUM INFUSION. PT. DOES C/O OF NECK/CHEST/HEADACHE SINCE ADMISSION WITH SOME RELIEF FROM ARRIVAL TO ER, BUT STILL PRESENT AT 10/26. PT. ORIENTED TO ROOM/PROCEDURE. CALL LIGHT IN REACH, WILL CONTINUE WITH PLAN OF CARE.
[2018-04-30 19:31] LABS: URINE BILIRUBIN NEGATIVE (Negative); URINE BLOOD NEGATIVE (Negative); URINE CLARITY CLEAR; URINE COLOR YELLOW; URINE GLUCOSE-RANDOM NEGATIVE (Negative); URINE KETONES NEGATIVE (Negative); URINE LEUKOCYTES-REFLEX NEGATIVE (Negative); URINE NITRITE-REFLEX NEGATIVE (Negative); URINE PROTEIN NEGATIVE (Negative); URINE UROBILINOGEN 0.2 E.U./dl (0.2-1.0)
[2018-04-30 19:38] LABS: AMP/METHAMP Negative (Negative); BARBITURATES Negative (Negative); BENZODIAZEPINES POSITIVE (Negative); COCAINE Negative (Negative); METHADONE Negative (Negative); OPIATES POSITIVE (Negative); PCP Negative (Negative); THC POSITIVE (Negative)
[2018-05-01] VITALS (7 sets, daily range): BP systolic 110–161; BP diastolic 56–69
[2018-05-01 04:58] LABS: HEMATOCRIT 40.6 % (37.0-47.0); HEMOGLOBIN 13.7 gm/dL (12.0-15.0); MCH 32.4 pg (26.0-34.0); MCHC 33.8 g/dL (28.0-37.0); RBC 4.23 mil/uL (4.20-5.00); RDW-CV 14.1 % (10.5-14.5); WBC 6.1 thou/uL (4.0-11.0)
[2018-05-01 05:23] LABS: ANION GAP 11 mmol/L (7-16); BUN 6 mg/dL (7-18); CALCIUM 8.7 mg/dL (8.5-10.1); CHLORIDE 105 mmol/L (98-107); CO2 25 mmol/L (21-32); GLUCOSE 103 mg/dL (70-99); POTASSIUM 3.9 mmol/L (3.5-5.1); SODIUM 141 mmol/L (136-145); TROPONIN-I LEVEL <0.06 ng/mL (<0.06)
--- NOTE | 2018-05-01 08:13 | NUR ---
ASSUMED PT. CARE AND RECEIVED REPORT AT 0730. PT A/OX4, VSS, MONITOR ON TRACING SB 1ST. PT. CONTINUE TO C/O OF HEADACHE AND CHEST TIGHTNESS, DESCRIBES "MY HEART FEELS TO BIG FOR MY CHEST". CURRENTLY ON RA @ 93%. PT. DENIES CURRENT SOB, BUT STATES SHE HAS BEEN SOB WITH ACTIVITY AT HOME RECENTLY. PT. EXPRESSES CONCERN OF POOR BP CONTROL AT HOME EVEN THOUGH SHE IS TAKING HER MEDICATIONS PRESCRIBED. FULL ASSESESMENT COMPLETED, REFER TO CHARTING. PT. NPO FOR CV CONSULT THIS MORNING. PT. CONTINUES TO REST POST ASSESSMENT AND APPEARS COMFORTABLE AT THIS TIME. CALL LIGHT IN REACH, WILL CONTINUE WITH PLAN OF CARE.
--- NOTE | 2018-05-01 11:30 | NUR ---
MET WITH PT TO DISCUSS HOME SITUATION/DC PLANNING. PT LIVES WITH SPOUSE AND IS INDEPENDENT AND ACTIVE. USES NO EQUIPMENT AND DENIES ANY NEEDS. STATES FEELING IMPROVED AND HOPES TO GO HOME TOMORROW
--- NOTE | 2018-05-01 13:06 | NUR ---
INFO FOR FOR DC: IF PT DC'D OVER WEEKEND NEED TO CALL KAREN ON CELL PHONE FROM [facility] AT [phone]. IF DC'D ON FRIDAY CONTACT LISBETH HOWELL AT [phone]
--- NOTE | 2018-05-01 16:31 | EKG ---
[place] [address] ELECTROCARDIOGRAM REPORT Name: HECTOR RENNER Room: [address] ADM IN .R.#: [id number] Admission: 04/30/18 Attend Phys: Morena Qiu MD Discharge: Date of : 61 Report #: [id number] THIS REPORT FOR: //name// [facility] ED Test Date: 2018-04-30 Test Time: 15:16:43 Pat Name: HECTOR RENNER Department: Room: [facility] Gender: F Floor Framer: Kelly CASTELLANO : 1965 Requested By: Kin Mendoza Order Number: [id number] MD: Akbar Faust Measurements Intervals [place] Rate: 63 P: 41 [place]: 201 QRS: -3 QRSD: 93 T: 183 QT: 465 QTc: 477 Interpretive Statements Sinus rhythm LVH with secondary repolarization abnormality Compared to ECG 03/01/2018 17:48:00 Possible ischemia no longer present Electronically Signed On 05-01-2018 16:31:44 LAP MAKER by Akbar Faust [email or web address] <ELECTRONICALLY SIGNED> By: Akbar Faust MD, [facility] 05/01/18 1631 1516 1516 Akbar Faust MD, [facility] /EPI
--- NOTE | 2018-05-01 16:35 | EKG ---
[place] [address] ELECTROCARDIOGRAM REPORT Name: HECTOR RENNER Room: [address] ADM IN M.R.#: [id number] Admission: 04/30/18 Attend Phys: Morena Qiu MD Discharge: Date of : 61 Report #: [id number] THIS REPORT FOR: //name// [facility] Test Date: 2018-05-01 Test Time: 08:41:52 Pat Name: HECTOR RENNER Department: Room: [address] Gender: F Director Government: : 1965 Requested By: Morena Qiu Order Number: [id number] Reading MD: Akbar Faust Measurements Intervals [place] Rate: 54 P: 57 [place]: 227 QRS: 16 QRSD: 93 T: 213 QT: 487 QTc: 462 Interpretive Statements Sinus rhythm Prolonged [place] interval LVH with secondary repolarization abnormality Anterolateral infarct, age indeterminate, possible Compared to ECG 03/01/2018 17:48:00 First degree AV block now present Electronically Signed On 05-01-2018 16:35:31 COMMUNITY SERVICE WORKER by Akbar Faust [email or web address] <ELECTRONICALLY SIGNED> By: Akbar Faust MD, FACC 05/01/18 1635 0841 0841 Akbar Faust MD, [facility] /EPI
--- NOTE | 2018-05-01 18:49 | NUR ---
PT. TEARFUL AND WITHDRAWN THIS AFTERNOON. ATTEMPTED TO ENGAGE CONVERSATION WITH PT, BUT NOT WILLING UNITL AT APPROX. 1730 PT. ASKED TO TALK TO RN AND STATED SHE WAS FEELING ANXIOUS AND FELT LIKE SHE BROKE DOWN TODAY AND WAS SCARED OF DYING. THERAPUTIC COMMUNICATION INITIATED AND ANXIETY MED GIVEN. PT. STATES FRUSTRATION WITH BEING STARTED ON CELEXA. STATES SHE CAN NOT TAKE ANTIDEPRESSANTS BECAUSE THEY HAVE THE OPPOSITE EFFECT ON HER AND SHE NEEDS SOMETHING THAT IS GOING TO "HELP NOW AND NOT 2 MONTHS FROM NOW". PT. BLOOD PRESSURE WNL THIS SHIFT. HOURLY ROUNDING COMPLETED THROUGH OUT THE DAY FOR PT. SAFETY. ANTICIPATE DC TOMORROW.
--- NOTE | 2018-05-02 00:13 | NUR ---
UPON INITIAL ASSESSMENT PT WAS VERY ANXIOUS AND C/O 10/10 HEADACHE. VSS, TRACING SB-SR WITH IST DEGREE BLOCK ON MONITOR. PT DID REQUEST PRN FLEXERIL. PT VERY ADAMENT ON NOT TAKING ANTIDEPRESSANTS AND WAS REASSURED THAT NONE WERE ORDERED FOR HER THIS SHIFT. PT WAS ABLE TO BE REDIRECTED AND CALM AND IS PRESENTLY SLEEPING COMFORTABLY. CLWR.
[2018-05-02 04:00] VITALS: BP 135/57
--- NOTE | 2018-05-02 05:20 | NUR ---
PT HAS HAD NO FURTHER C/O PAIN OR DISTRESS T/O THIS NIGHT. TRACING SR WITH 1ST DEGREE BLOCK ON MONITOR. NO NEW ISSUES OR CONCERNS. CLWR.
[2018-05-02 08:00] VITALS: BP 177/84
[2018-05-02 11:51] VITALS: BP 147/75
[2018-05-02 16:04] VITALS: BP 142/75
[2018-05-02 16:05] VITALS: BP 142/75
[2018-05-02 16:57] VITALS: BP 142/75
--- NOTE | 2018-05-02 17:11 | NUR ---
PT DISCHARGE INSTRUCTIONS REVIEWED WITH PT. DISCHARGE INSTRUCTIONS AND BELONGINGS SENT WITH PT. PIV AND COFFEE GRINDER REMOVED EARLIER.
--- NOTE | 2018-05-05 06:53 | CON ---
[address] [address] CONSULTATION Name: HECTOR RENNER Room: [address]#: [id number] Admission: 04/30/18 Attend Phys: Morena Qiu MD Discharge: 05/02/18 Date of : 61 Report #: [id number] THIS REPORT FOR: //name// CC: Dr. Milo Qiu CARDIOLOGY CONSULTATION INDICATION: Hypertensive urgency and chest pain. HISTORY OF PRESENT ILLNESS: The patient is a very pleasant 53-year-old white female who is well known to myself. She has hypertrophic obstructive cardiomyopathy. Her gradient is fairly mild. She does have a history of a cardiac arrest while at an outside institution. Given that and her history of hypertrophic obstructive cardiomyopathy, she underwent an ICD placement for secondary prevention. She has had no dysrhythmias since that time. She has had ongoing problems with labile hypertension. Yesterday, the patient took her blood pressure in the morning and noted it to be moderately elevated. Despite extra medication, her blood pressure became increasingly elevated throughout the day to the point where she presented to the Emergency Room with complaints of fullness and chest discomfort. She was given hydralazine in the Emergency Room and continued on her home medications. Today, her blood pressure appears much better controlled. Cardiac enzymes have been unremarkable x 3 sets. EKG shows sinus rhythm with a T-wave inversion diffusely. This is not significantly changed from her prior EKGs. PAST MEDICAL HISTORY: 1. Cardiac catheterization in 2013 showed minimal plaquing in the proximal right coronary artery and otherwise normal coronary arteries. 2. Hypertrophic obstructive cardiomyopathy. 3. Hypertension. 4. Hyperlipidemia. 5. ICD placement for secondary prevention after an episode of cardiac arrest in 2015. 6. Appendectomy. 7. Cholecystectomy. 8. Kidney donor to her son, 17 years ago. 9. Tonsillectomy. FAMILY HISTORY: The patient's father had coronary artery disease in his 40s. SOCIAL HISTORY: The patient continues to smoke, but she is smoking very few cigarettes at this point in time. She is . She has 4 children and 10 grandchildren. ALLERGIES: [place] [address] CONSULTATION Name: HECTOR RENNER Room: [address]#: [id number] Admission: 04/30/18 Attend Phys: Morena Qiu MD Discharge: 05/02/18 Date of : 61 Report #: [id number] HOME MEDICATIONS: Carvedilol 25 mg p.o. b.i.d., atorvastatin 20 mg at bedtime, aspirin 81 mg daily, diltiazem 120 mg at bedtime, Ambien 10 mg at bedtime, Prilosec 40 mg daily, albuterol inhaler q.i.d., tramadol p.r.n., Elizabeth p.r.n. REVIEW OF SYSTEMS: GENERAL: She denies convulsions or seizures or focal paralysis. In general, there is no unexplained weight loss or fever. RESPIRATORY: She has a cough that is nonproductive. She has dyspnea, but no orthopnea. CARDIOVASCULAR: As outlined above. In addition, she denies any edema at this time. She does have a heart murmur. ENDOCRINE: She denies any history of diabetes or thyroid disease. GASTROINTESTINAL: No nausea, vomiting, hematemesis, melena, hematochezia, jaundice, or hepatitis. GENITOURINARY: No dysuria or hematuria. HEMATOLOGIC AND LYMPHATIC: No history of anemia, bleeding disorder, blood clots or cancer. ALLERGY AND IMMUNOLOGIC: SHE HAS ALLERGIES TO CONTRAST OUTLINED ABOVE. PSYCHIATRIC: Moderate anxiety, mild depression. MUSCULOSKELETAL: She has arthritis without connective tissue disease. SKIN: No recent rashes, hives or chronic skin conditions. EYES: No acute loss in vision. EARS, NOSE, MOUTH, AND THROAT: She denies epistaxis or dentures. PHYSICAL EXAMINATION: VITAL SIGNS: Stable, blood pressure 166/76, pulse 61 and regular. GENERAL: This is a pleasant lady who does not appear to be in distress at this point in time. HEENT: Head is normocephalic, atraumatic. Extraocular muscles intact. Mucous membranes are moist. NECK: Shows no jugular venous distention. There are no carotid bruits. CHEST: Reveals clear lung rojas without wheezes or rales. CARDIAC: Reveals a regular rhythm with a soft grade 1-2/6 holosystolic murmur heard best at the right upper sternal border without radiation. ABDOMEN: Reveals normal bowel sounds. The abdomen is soft and nontender. EXTREMITIES: Shows no edema. Peripheral pulses 2+ and palpable. SKIN: Warm and dry. LABORATORY DATA: Reviewed. Sodium 141, potassium 3.9, chloride 105, bicarbonate 25, BUN 6, creatinine 1.0, serum glucose 103. LFTs within normal limits. Troponin less than 0.06 on 2 separate occasions. NT-proBNP 936. CBC shows a white count of 6.1, hemoglobin 13.7 and platelet count 138,000. IMPRESSION AND RECOMMENDATIONS: 1. Labile hypertension. We will make medication [place] [address] CONSULTATION Name: HECTOR RENNER Room: [facility] IN [facility]#: [id number] Admission: 04/30/18 Attend Phys: Morena Qiu MD Discharge: 05/02/18 Date of : 61 Report #: [id number] improve her blood pressure. At this point in time, I am in favor of continuing carvedilol twice daily and switching from diltiazem to twice daily amlodipine. Continue hydralazine p.r.n. 2. Hypertrophic obstructive cardiomyopathy, presently stable. She has a minimal gradient by echocardiogram in February. Would avoid diuretics, dehydration and tachycardia. 3. History of cardiac arrest at outside hospital. She is status post ICD placement for secondary prevention. ICD is functioning normally by an office and remote interrogations. 4. Chronic tobacco abuse. The patient has cut down significantly on her smoking. Cessation advised. 5. Hyperlipidemia. The patient continues on a moderate dose of atorvastatin. We will check fasting lipid profile. 6. Chest discomfort, noncardiac. Enzymes are unremarkable. 7. Anxiety. The patient, I believe, has some component of posttraumatic stress disorder related to her in-hospital cardiac arrest a few years ago. She is very concerned that her symptoms and hypertension could lead to significant health complications. The patient reassured somewhat. 8. At this point in time, the patient appears stable from a cardiac standpoint, I will observe. <ELECTRONICALLY SIGNED> By: Akbar Faust MD, [facility] 05/05/18 0653 1030 [id number] Rere Faust MD, FACC /nt
== END 2018-05-02 17:10 | disposition home or self-care (01) | DRG 304 ==
LOC: M.ERS 15:07 → M.2W 16:10 → M.TBA-ER 16:10 → M.2W 17:10
PROVIDERS: Family Medicine; ADMIT Family Medicine
DX: I16.0 Hypertensive urgency (principal); I50.33 Acute on chronic diastolic (congestive) heart failure; I42.1 Obstructive hypertrophic cardiomyopathy; F43.10 Post-traumatic stress disorder, unspecified; F41.9 Anxiety disorder, unspecified; F17.210 Nicotine dependence, cigarettes, uncomplicated; E78.5 Hyperlipidemia, unspecified; F41.0 Panic disorder [episodic paroxysmal anxiety]; I25.10 Atherosclerotic heart disease of native coronary artery without angina pectoris; J44.9 Chronic obstructive pulmonary disease, unspecified; I11.0 Hypertensive heart disease with heart failure; I25.2 Old myocardial infarction; Z90.5 Acquired absence of kidney; Z90.710 Acquired absence of both cervix and uterus; Z90.49 Acquired absence of other specified parts of digestive tract; Z95.810 Presence of automatic (implantable) cardiac defibrillator; Z91.041 Radiographic dye allergy status; Z82.49 Family history of ischemic heart disease and other diseases of the circulatory system; Z79.891 Long term (current) use of opiate analgesic; Z79.82 Long term (current) use of aspirin; Z79.899 Other long term (current) drug therapy

== ENCOUNTER 2018-10-20 10:09 | Emergency (ER) | payer OTHER ==
[~2018-10-20] VITALS: Ht 162.6 cm; Wt 76.7 kg
[~2018-10-20 10:09] MED LIST changes: +CARDIZEM CD120 MG PO
[2018-10-20] MEDS ORDERED: ULTRAM 50MG TAB50 MG PO (10:17)
[2018-10-20 10:55] LABS: ABSOLUTE EOSINOPHILS 0.2 thou/uL (0.0-0.7); ABSOLUTE LYMPHOCYTES 1.6 thou/uL (0.8-5.3); ABSOLUTE MONOCYTES 0.5 thou/uL (0.0-1.2); BASOPHILS 0.4 %; EOSINOPHILS 2.6 %; HEMATOCRIT 40.9 % (37.0-47.0); HEMOGLOBIN 13.9 gm/dL (12.0-15.0); LYMPHOCYTES 17.3 %; MCH 32.2 pg (26.0-34.0); MCV 94.7 fL (80.0-100.0); MONOCYTES 5.4 %; MPV 9.8 fl. (7.2-11.1); NUCLEATED RBCS 0 /100WBC; PLATELET COUNT* 228 thou/uL (150-400); POLYS 74.3 %; RBC 4.32 mil/uL (4.20-5.00); RDW-CV 14.2 % (10.5-14.5); WBC 9.4 thou/uL (4.0-11.0)
[2018-10-20 11:07] LABS: CALCIUM 9.1 mg/dL (8.5-10.1); CREATININE 0.9 mg/dL (0.6-1.3); POTASSIUM 3.9 mmol/L (3.5-5.1)
[2018-10-20 11:15] LABS: ALBUMIN 3.3 g/dL (3.4-5.0); TOTAL BILIRUBIN 0.3 mg/dL (<0.1-1.0); TOTAL PROTEIN 7.5 g/dL (6.4-8.2)
[2018-10-20] MEDS ORDERED: ALBUTEROL2.5 MG/31 INH (11:33)
[2018-10-20] MEDS ORDERED: AUGMENTIN 875-1 EACH PO (11:33)
[2018-10-20] MEDS ORDERED: LASIX 20 MG TAB20 MG PO (11:33)
[2018-10-20] MEDS ORDERED: PREDNISONE 20 M20 MG PO (11:33)
[2018-10-20 11:47] VITALS: BP 147/59
--- NOTE | 2018-10-20 16:11 | EKG ---
[place] [address] ELECTROCARDIOGRAM REPORT Name: RENNERHECTOR Kelly Room: [facility]#: [id number] Admission: 10/20/18 Attend Phys: Discharge: 10/20/18 Date of : 61 Report #: [id number] THIS REPORT FOR: //name// [facility] ED Test Date: 2018-10-20 Test Time: 10:15:30 Pat Name: HECTOR RENNER Department: Room: Gender: F Quick Service Technician: : 1965 Requested By: Osito Padgett Order Number: [id number] Reading MD: Josiah Cee Measurements Intervals [place] Rate: 60 P: 53 NE: 218 QRS: 10 QRSD: 96 T: 161 QT: 483 QTc: 483 Interpretive Statements Sinus rhythm Prolonged NE interval LVH with secondary repolarization abnormality, ischemia to be considered Borderline prolonged QT interval Compared to ECG 05/01/2018 08:41:52 Myocardial infarct finding no longer present Electronically Signed On 10-20-2018 16:11:25 CDT by Josiah Cee [email or web address] <ELECTRONICALLY SIGNED> By: Josiah Cee MD, [facility] 10/20/18 1611 1015 1015 Josiah Cee MD, FAC /EPI
== END 2018-10-20 11:46 | disposition home or self-care (01) ==
LOC: M.ERS 10:09
PROVIDERS: Nurse Practitioner Psychiatric/Mental Health
DX: J44.9 Chronic obstructive pulmonary disease, unspecified (principal); J32.1 Chronic frontal sinusitis; J32.0 Chronic maxillary sinusitis; R79.89 Other specified abnormal findings of blood chemistry; I10 Essential (primary) hypertension; F41.9 Anxiety disorder, unspecified; Z90.710 Acquired absence of both cervix and uterus; Z90.49 Acquired absence of other specified parts of digestive tract; Z86.73 Personal history of transient ischemic attack (TIA), and cerebral infarction without residual deficits

== ENCOUNTER 2021-06-08 07:43 | Inpatient (IN) | payer OTHER ==
[2021-06-08] VITALS (16 sets, daily range): BP systolic 122–152; BP diastolic 48–113
[~2021-06-08] VITALS: Ht 162.6 cm; Wt 86.6 kg
[~2021-06-08 07:43] MED LIST changes: -ASPIR 8181 MG PO; +AUGMENTIN 875-1 EACH PO; +CHILDREN'S ASPI81 M1 PO; +PRILOSEC OTC20 MG PO; +ULTRAM 50MG TAB50 MG PO
[2021-06-08 08:11] LABS: ABSOLUTE BASOPHILS 0.1 thou/uL (0.0-0.2); ABSOLUTE EOSINOPHILS 0.3 thou/uL (0.0-0.7); ABSOLUTE LYMPHOCYTES 2.3 thou/uL (0.8-5.3); ABSOLUTE MONOCYTES 0.6 thou/uL (0.0-1.2); ABSOLUTE NEUTROPHILS 4.7 thou/uL (1.6-8.1); BASOPHILS 0.9 %; EOSINOPHILS 3.7 %; HEMATOCRIT 49.2 % (37.0-47.0); HEMOGLOBIN 16.7 gm/dL (12.0-15.0); LYMPHOCYTES 29.3 %; MCH 33.6 pg (26.0-34.0); MCHC 33.9 g/dL (28.0-37.0); MCV 98.9 fL (80.0-100.0); MONOCYTES 7.3 %; NUCLEATED RBCS 0 /100WBC; PLATELET COUNT* 228 thou/uL (150-400); POLYS 58.8 %; RBC 4.98 mil/uL (4.20-5.00); RDW-CV 15.1 % (10.5-14.5)
[2021-06-08 08:18] LABS: CALCIUM 8.9 mg/dL (8.5-10.1); POTASSIUM 3.3 mmol/L (3.5-5.1)
[2021-06-08 08:22] LABS: APTT 29.6 Seconds (25.0-31.3); PROTIME 10.7 Seconds (9.20-11.50)
[2021-06-08 08:33] LABS: ALBUMIN 3.8 g/dL (3.4-5.0); CK-MB MASS 2.6 ng/mL (<0.5-3.6); MAGNESIUM 1.6 mg/dL (1.8-2.4); TOTAL BILIRUBIN 0.5 mg/dL (<0.1-1.0); TOTAL PROTEIN 8.2 g/dL (6.4-8.2)
--- NOTE | 2021-06-08 16:28 | CON ---
[address] [address] CONSULTATION Name: HECTOR RENNER Room: [address] Jeb Chanel#: [id number] Admission: 06/08/21 Attend Phys: Jani Hackett MD Discharge: Date of : 61 Report #: [id number] THIS REPORT FOR: cc: Quinn Acosta Russell J. DO Blick, David R. MD [facility] ~ cc: Megan Acosta DATE OF CONSULTATION: 06/08/2021 CARDIOLOGY CONSULTATION HISTORY OF PRESENT ILLNESS: The patient is a 56-year-old white female who I was asked to see in the Emergency Room today after she complained of chest pain. The patient has an extensive past medical history. Unfortunately, I do not have a lot of her old records. The patient has a history of a cardiomyopathy. She apparently had a heart catheterization in the past that showed no significant coronary artery disease. She had a defibrillator implanted by Dr. Akbar Faust in the past. She has never had a discharge of her defibrillator. Unfortunately, she has no medical insurance and does not get regular care. She is not very active at this time. She has been doing well recently with no significant chest pain, shortness of breath, palpitations, syncope, fever, cough, lower extremity edema. However, she awakened this morning with pain in her chest and in her arm. She became diaphoretic. She called the ambulance. She was brought here to [place]. I was asked to see her on an emergent basis. She has had no recent syncopal spells or discharge of defibrillator. PAST MEDICAL HISTORY: She has had previous left kidney removed which she donated to a family member. She had a hysterectomy, cholecystectomy, appendectomy. She has a history of hypertension, hyperlipidemia. No diabetes. MEDICATIONS: Include carvedilol, aspirin. She is on Lipitor, but ran out it recently. ALLERGIES: She has no known drug allergies. FAMILY HISTORY: Her father had bypass surgery. SOCIAL HISTORY: She is . She and her live here in [place]. 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 Smokes less than 1/2 pack of cigarettes a day. Used to smoke 2 packs a day. She used to drink a pint of whiskey a day, but no longer abuses alcohol. No history [place] [address] CONSULTATION Name: HECTOR RENNER Room: [address] Jeb Chanel#: [id number] Admission: 06/08/21 Attend Phys: Jani Hackett MD Discharge: Date of : 61 Report #: [id number] REVIEW OF SYSTEMS: No history of stroke. She does have COPD, uses a nebulizer. No history of liver disease, kidney disease, cancer, psychiatric illness, chronic skin condition. PHYSICAL EXAMINATION: GENERAL: Revealed a middle-aged female, appeared in moderate distress secondary to chest pain. VITAL SIGNS: She had a blood pressure 110/60, pulse is 120 and irregular. HEENT: She was anicteric. Conjunctivae pink. Mucous membranes moist. NECK: Veins do not appear distended. No carotid bruits. CHEST: Clear to auscultation. CARDIAC: Irregular, tachycardia. No significant murmur. ABDOMEN: Soft. EXTREMITIES: Had no edema. SKIN: Warm and dry. NEUROLOGIC: Nonfocal. LABORATORY DATA: Her ECG shows atrial fibrillation with rapid ventricular response rate, left ventricular hypertrophy, repolarization changes. IMPRESSION AND RECOMMENDATIONS: 1. Chest pain. Recommend cardiac catheterization. 2. Atrial fibrillation. Recommend diltiazem with slowly response rate. 3. Cardiomyopathy. The patient is on a beta alma. 4. Hyperlipidemia. The patient remained on a statin drug. 5. History of alcohol abuse. 6. Previous tobacco abuse. 7. Previous insertion of an ICD. No recent discharges. <ELECTRONICALLY SIGNED> By: Alexis Juares MD, [facility] 06/08/21 1628 0718 [id number] Juares MD, FAC /nt
--- NOTE | 2021-06-08 17:29 | CARD ---
[address] [address] CARDIAC CATH REPORT Name: HECTOR RENNER Room: [address] Jeb Chanel#: [id number] Admission: 06/08/21 Attend Phys: Jani Hackett MD Discharge: Date of : 61 Report #: [id number] THIS REPORT FOR: cc: Quinn Acosta Russell J. DO Blick, David R. MD [facility] ~ APPROVED REPORT Study performed: 06/08/2021 08:07:47 Patient Details Patient Status: ED Room #: The patient is a 56 year-old female Event Personnel Alexis Juares Rn Telemetry, Jenifer Chandler RN RN, Shawna Ashley RTR Trever Livingston Angela DATA CENTER CONSULTANT Monitor Procedures Performed Art Access - R femoral artery* RAULITO Place w/wo Plasty Single RCA Left Heart Cath w/or w/o Coronaries , Hemostasis with Manual Pressure. Indication Abnormal ECG, Atrial fibrillation, Unstable angina , Chest pain Risk Factors Hypercholesterolemia, Tobacco History () Previous Procedures/Diagnoses Previous CHF Admission/Lab Medications/Medications given during procedure Aspirin, Platelet Aff. Inhib., Heparin Unfract., Heparin IV 8000 units, Heparin IV 4000 units, Aggrastat 8.4 ml Procedure Narrative The patient was brought emergently to the Cardiac Catheterization Laboratory and was prepped and draped in a sterile manner. The right femoral was infiltrated with 2% Lidocaine subcutaneous anesthesia. IV conscious sedation was used throughout procedure with appropriate monitoring and was performed in the presence of a registered nurse who was an independent trained observer other than the physician performing the procedure. The right femoral [place] [address] CARDIAC CATH REPORT Name: HECTOR RENNER Room: [address]#: [id number] Admission: 06/08/21 Attend Phys: Jani Hackett MD Discharge: Date of : 61 Report #: [id number] guidance. A [place] 6 FR sheath was inserted into the right femoral artery. Coronary angiography was performed using coronary diagnostic catheters. The right coronary system was accessed and visualized with a Diagnostic JR4 catheter. The left coronary system was accessed and visualized with a Diagnostic JL4 catheter. The left ventricle was accessed and visualized with a Diagnostic PIGTAIL catheter. Left ventricular/Aortic Valve gradient assessed via catheter pullback. Left ventriculogram was performed in PORTILLO projection. Hemostasis was obtained with manual pressure following sheath removal without any complications. The patient tolerated the procedure well and there were no complications associated with the procedure. No radial catheter was available, therefore the procedure was performed from the right femoral artery. Sheath was sutured in place at the end of the procedure. Intraoperative Conscious Sedation Sedation start time: 08:29 Case end Time: 09:03 Fentanyl 50 mcg Fluoro Time: 3.3 minutes Dose: DAP 1633.61 cGycm2 188 mGy Contrast Type and Amount: Visipaque 170 mL Coronary Angiography The patient's coronary anatomy is co- dominant. Diagnostic Cath Left Main 0% stenosis LAD 50% proximal stenosis. 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 Circumflex 0% stenosis Right Coronary 80% proximal stenosis. Ramus 0% stenosis Left Ventriculography The left ventricular ejection fraction is estimated to be 50-55%. Left ventricular wall motion abnormalities are not present. There is 1+ mitral insufficiency. Hemodynamics The aortic pressure is 104/62 mmHg with a mean of 80 mmHg. The left ventricular pressure is 131/15 mmHg with a mean of mmHg. The left ventricular end diastolic pressure is 30 mmHg. There was no gradient across the aortic valve upon pullback[place] [address] CARDIAC CATH REPORT Name: HECTOR RENNER Room: [address]#: [id number] Admission: 06/08/21 Attend Phys: Jani Hackett MD Discharge: Date of : 61 Report #: [id number] ventricle to the aorta revealed no gradient across the aortic valve. PCI Technique Lesion Anticoagulation was achieved with Heparin . bolus of IV aggrastat given Percutaneous coronary intervention was performed on the proximal right coronary artery. The lesion stenosis prior to intervention was 80% with JIMMIE 3 flow. A Launcher JR 4 6FR Guide Catheter was used to engage the rca ostium. A IG: BMW 190cm Interventional Guidewire was used to cross the lesion. STENT DEPLOYMENT A drug-eluting stent Artesian RX Stent 3.0X18mm was inserted and inflated up to 12.00atm for 22seconds. Repeat angiography revealed the following post-stent deployment results: 0% stenosis. Additional Inflation: 14.00atm for 10seconds. Final angiography reveals 0 % stenosis with JIMMIE 3 flow. 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 80% stenosis of the proximal RCA 3. LVEF 50-55% 4. history of hypertrophic cardiomyopathy, but there was no outflow tract gradient demonstrated. 5. LVEF 50-55% 6. successful placement of a drug eluting stent in the proximal RCA. Recommendations Cardiac Rehabilitation Referral Aggressive Medical Therapy Medications Administered Prasugrel <ELECTRONICALLY SIGNED> By: Alexis Juares MD, [facility] 06/08/211728 28 28Daanayeli Juares MD, FACC /INF
[2021-06-09] VITALS: BP 132/54
[2021-06-09 03:55] LABS: ABSOLUTE EOSINOPHILS 0.1 thou/uL (0.0-0.7); ABSOLUTE LYMPHOCYTES 1.3 thou/uL (0.8-5.3); ABSOLUTE MONOCYTES 0.4 thou/uL (0.0-1.2); ABSOLUTE NEUTROPHILS 3.4 thou/uL (1.6-8.1); BASOPHILS 0.6 %; EOSINOPHILS 1.9 %; HEMATOCRIT 40.9 % (37.0-47.0); LYMPHOCYTES 24.7 %; MCHC 33.2 g/dL (28.0-37.0); MCV 99.4 fL (80.0-100.0); MONOCYTES 8.2 %; MPV 10.1 fl. (7.2-11.1); NUCLEATED RBCS 0 /100WBC; POLYS 64.6 %; RBC 4.12 mil/uL (4.20-5.00); RDW-CV 15.3 % (10.5-14.5); WBC 5.3 thou/uL (4.0-11.0)
[2021-06-09 04:00] VITALS: BP 102/64
[2021-06-09 04:29] LABS: ANION GAP 9 mmol/L (7-16); BUN 11 mg/dL (7-18); CALCIUM 8.3 mg/dL (8.5-10.1); CHLORIDE 104 mmol/L (98-107); CHOLESTEROL 219 mg/dL (<200); CO2 27 mmol/L (21-32); CREATININE 0.9 mg/dL (0.6-1.3); GLUCOSE 92 mg/dL (70-99); HDL CHOLESTEROL 33 mg/dL (>40); LDL CHOLESTEROL 132 mg/dL (<100); POTASSIUM 4.1 mmol/L (3.5-5.1); SODIUM 140 mmol/L (136-145); TC:HDL 6.6 Ratio (Not establshd); TRIGLYCERIDE 270 mg/dL (<150); VLDL 54 mg/dL (<40)
[2021-06-09 06:12] LABS: HEMOGLOBIN 13.6 gm/dL (12.0-15.0); PLATELET COUNT* 140 thou/uL (150-400)
[2021-06-09] MEDS ORDERED: EFFIENT10 MG PO (06:31)
[2021-06-09 08:00] VITALS: BP 166/68
[2021-06-09 08:04] LABS: SERUM ASSESSMENT Clear
--- NOTE | 2021-06-09 10:06 | EKG ---
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: JOAO : 1965 Requested By: Alexis Juares Order Number: [id number] Sharon MD: Alexis Juares Measurements Intervals [place] Rate: 138 P: NE: QRS: -4 QRSD: 110 T: 162 QT: 357 QTc: 541 Interpretive Statements Atrial fibrillation LVH with IVCD and secondary repol abnrm ST depr, consider ischemia, inferior leads Prolonged QT interval Baseline wander in lead(s) I,III,aVL,V1,V2 Compared to ECG 10/20/2018 10:15:30 Sinus rhythm no longer present Possible ischemia still present Electronically Signed On 06-09-2021 10:06:14 RN PRIMARY CARE by Alexis Juares [email or web address] <ELECTRONICALLY SIGNED> By: Alexis Juares MD, [facility] 06/09/21 1006 0745 Alexis Juares MD, [facility] /EPI
--- NOTE | 2021-06-09 10:07 | EKG ---
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
[2021-06-09 16:00] VITALS: BP 139/53
[2021-06-09 20:00] VITALS: BP 154/72
[2021-06-10 00:42] VITALS: BP 142/72
[2021-06-10 04:00] VITALS: BP 129/65
[2021-06-10 04:19] LABS: ABSOLUTE LYMPHOCYTES 0.9 thou/uL (0.8-5.3); ABSOLUTE MONOCYTES 0.3 thou/uL (0.0-1.2); ABSOLUTE NEUTROPHILS 3.2 thou/uL (1.6-8.1); BASOPHILS 0.4 %; HEMATOCRIT 38.6 % (37.0-47.0); HEMOGLOBIN 12.9 gm/dL (12.0-15.0); LYMPHOCYTES 19.4 %; MCH 33.2 pg (26.0-34.0); MCHC 33.3 g/dL (28.0-37.0); MCV 99.6 fL (80.0-100.0); MONOCYTES 7.4 %; MPV 10.9 fl. (7.2-11.1); NUCLEATED RBCS 0 /100WBC; PLATELET COUNT* 113 thou/uL (150-400); POLYS 71.8 %; RBC 3.87 mil/uL (4.20-5.00); RDW-CV 14.8 % (10.5-14.5); WBC 4.5 thou/uL (4.0-11.0)
[2021-06-10 04:42] LABS: CALCIUM 8.2 mg/dL (8.5-10.1); CREATININE 0.8 mg/dL (0.6-1.3)
[2021-06-10 07:07] LABS: GLYCOHEMOGLOBIN (HGB A1C) 5.4 % (4.8-5.6)
[2021-06-10 08:00] VITALS: BP 159/63
--- NOTE | 2021-06-10 11:14 | EKG ---
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1887 : 1965 Requested By: Jani Hackett Order Number: [id number] Sharon MD: Alexis Juares Measurements Intervals [place] Rate: 48 P: 73 GA: 193 QRS: 1 QRSD: 96 T: 206 QT: 486 QTc: 435 Interpretive Statements Sinus bradycardia LVH with secondary repolarization abnormality Compared to ECG 06/08/2021 17:16:16 No significant changes Electronically Signed On 06-10-2021 11:14:12 PAINT GRINDER by Alexis Juares [email or web address] <ELECTRONICALLY SIGNED> By: Alexis Juares MD, [facility] 06/10/21 1114 1057 1057 Alexis Juares MD, [facility] /EPI
--- NOTE | 2021-06-10 11:21 | EKG ---
[place] [address] ELECTROCARDIOGRAM REPORT Name: RENNERHECTOR Room: [address] ADM IN [facility].#: [id number] Admission: 06/09/21 Attend Phys: Jani Hackett, Discharge: Date of : 61 Date of Service: 06/10/219[address] Report #: [id number] THIS REPORT FOR: //name// [facility] Test Date: 2021-06-10 Test Time: 09:12:25 Pat Name: HECTOR RENNER Department: Room: [address] Gender: F Financial Services Consultant: AF : 1965 Requested By: Alexis Juares Order Number: [id number] Sharon MD: Alexis Juares Measurements Intervals [place] Rate: 74 P: 40 AK: 186 QRS: -6 QRSD: 107 T: 180 QT: 437 QTc: 485 Interpretive Statements Sinus rhythm LVH with secondary repolarization abnormality Compared to ECG 06/09/2021 10:57:13 Sinus bradycardia no longer present Electronically Signed On 06-10-2021 11:20:59 DOOR OPERATOR by Alexis Juares [email or web address] <ELECTRONICALLY SIGNED> By: Alexis Juares MD, [facility] 06/10/21 1120 1 09 Alexis Juares MD, [facility] /EPI
[2021-06-10 11:47] VITALS: BP 111/61
[2021-06-10] MEDS ORDERED: PACERONE 200 M200 M1 PO (12:06)
[2021-06-10] MEDS ORDERED: LIPITOR 20 MG T20 M1 PO (12:49)
[2021-06-10 13:17] VITALS: BP 111/61
== END 2021-06-10 13:30 | disposition home or self-care (01) | DRG 247 ==
LOC: M.ERS 07:43 → M.TBA-CV 08:03 → M.CL 08:03 → M.TBA-CV 11:51 → M.2W 15:53
PROVIDERS: Emergency Medicine; Internal Medicine Cardiovascular Disease; ADMIT Internal Medicine; ATTEND Internal Medicine
PROC: 027034Z Dilation of Coronary Artery, One Artery with Drug-eluting Intraluminal Device, Percutaneous Approach (ICD-10-PCS; principal; 2021-06-08)
PROC: B215YZZ Fluoroscopy of Left Heart using Other Contrast (ICD-10-PCS; principal; 2021-06-08)
PROC: B211YZZ Fluoroscopy of Multiple Coronary Arteries using Other Contrast (ICD-10-PCS; principal; 2021-06-08)
PROC: 4A023N7 Measurement of Cardiac Sampling and Pressure, Left Heart, Percutaneous Approach (ICD-10-PCS; principal; 2021-06-08)
DX: I21.3 ST elevation (STEMI) myocardial infarction of unspecified site (principal); I42.9 Cardiomyopathy, unspecified; Q24.5 Malformation of coronary vessels; F17.210 Nicotine dependence, cigarettes, uncomplicated; I48.91 Unspecified atrial fibrillation; I11.9 Hypertensive heart disease without heart failure; R05.9 Cough, unspecified; F41.9 Anxiety disorder, unspecified; I25.110 Atherosclerotic heart disease of native coronary artery with unstable angina pectoris; K76.0 Fatty (change of) liver, not elsewhere classified; R10.11 Right upper quadrant pain; E78.5 Hyperlipidemia, unspecified; J44.9 Chronic obstructive pulmonary disease, unspecified; Z90.5 Acquired absence of kidney; Z90.49 Acquired absence of other specified parts of digestive tract; Z90.710 Acquired absence of both cervix and uterus; Z95.810 Presence of automatic (implantable) cardiac defibrillator; I25.2 Old myocardial infarction; Z86.73 Personal history of transient ischemic attack (TIA), and cerebral infarction without residual deficits; Z79.899 Other long term (current) drug therapy; Z91.041 Radiographic dye allergy status; Z79.82 Long term (current) use of aspirin; Z82.49 Family history of ischemic heart disease and other diseases of the circulatory system; Z71.6 Tobacco abuse counseling

== ENCOUNTER 2021-06-12 04:03 | Inpatient (IN) | payer OTHER ==
[~2021-06-12] VITALS: Ht 165.1 cm; Wt 88.5 kg
--- NOTE | ~2021-06-12 | CON ---
[facility] [address] [place] [address] CONSULTATION Name: HECTOR RENNER Room: [address] ADM IN M.R.#: [id number] Admission: 06/12/21 Attend Phys: Clifton Victoria Discharge: Date of : 61 Report #: [id number] THIS REPORT FOR: cc: Quinn Acosta Russell J. DO Khosla, Parveen K. MD ~ DATE OF CONSULTATION: 07/09/2021 HISTORY OF PRESENT ILLNESS: This is a 56-year-old female patient who was evaluated by me for the possibility of critical illness neuropathy versus myopathy. This patient has a large record in the computer. Part of it was reviewed and it looks like this patient has a baseline cardiac problems. She was admitted with multiple problems and she had a very involved course in the hospital. She had acute hypoxic respiratory failure, shock, hypotension, shock liver, acute renal failure, pneumothorax and now she is ready to go to rehab and she noticed that she is pretty much quadriplegic. Only thing she has is a flicker of movements in both feet and both hands. There is a very small flicker of movement. REVIEW OF SYSTEMS: Positive for multiple problems. A 14-point review of system was carried out. She has a defibrillator. She is off steroids now. She has chest tube put in. Cardiology is following this patient and from the record, it also looks like she has a history of atrial fibrillation. That management especially the question of anticoagulation will be deferred to the Cardiology. She does have a history of coronary artery disease. She denies any prior history of stroke and she said her memory is reasonable. This was a relevant 14-point review of system. PAST MEDICAL HISTORY: Positive for coronary problems as well as cardiac problems. FAMILY HISTORY: Unremarkable. SOCIAL HISTORY: She has a history of smoking. PHYSICAL EXAMINATION: The patient's examination indicates she is alert. She is responsive. She can tell me what month it is, what date it is, what hospital she is in and who the president is, looks like her memory is preserved. Cranial nerve examination II-XII does not show any restrictions. She did pretty well with the visual field, extraocular movement, facial muscle examination. She is profoundly weak in all 4 extremities except for a flicker of movement. She has no movement in arms or legs. Flicker of movement is present only in feet and the hands, but she did reasonably well with the position sense. She did reasonably well with the touch, but she had [place] [address] CONSULTATION Name: HECTOR RENNER Room: [address] IN [facility].#: [id number] Admission: 06/12/21 Attend Phys: Clifton Victoria Discharge: Date of : 61 Report #: [id number] touch and pain. Her reflexes are absent in the lower extremities and close to absent in the upper extremities. Plantars are mute. Rest of the exam is not much possible. She does not appear to be in respiratory difficulty. Her last blood pressure was 113/54, respiration was 20, pulse is 61, temperature is 98.6. LABORATORY DATA: Indicate a platelet count of 88 only. She does not have any imaging study of the brain. IMPRESSION: 1. 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 It does not look like critical illness myelitis. 2. Rule out any contributing factor by doing B12 level, CPK and immunofixation electrophoresis. 3. She mainly need rehabilitation, but I will suggest doing a noncontrast CT of the head and C-spine to make sure there is no pathology there because she has undergone so many problems and platelet count is low. I asked the staff to check with the home school coordinator and if he feels comfortable, we can get it done and basically that the main test, which he needs to be done because we do not have facility to do EMG in this patient. That can be done as an outpatient. Main thing is nutrition. We will defer to Cardiology, the question of anticoagulation in this patient and if she has atrial fibrillation, might like to look at the patient's CT to see if shows any evidence of old stroke. Thank you very much for this referral. By: 1600 1833Pceasar Cornejo MD /nt
[~2021-06-12 04:03] MED LIST changes: +EFFIENT10 MG PO; +PACERONE 200 M200 M1 PO
[2021-06-12 04:06] VITALS: BP 216/112
[2021-06-12 04:56] LABS: BE -7.6 mmol/L (-2 to +3)
[2021-06-12 05:05] LABS: PCO2 68.6 mmHg (35.0-45.0); pH 7.141 (7.340-7.450)
[2021-06-12 06:18] LABS: HEMOGLOBIN 12.9 gm/dL (12.0-15.0); MCH 32.6 pg (26.0-34.0); MCHC 32.2 g/dL (28.0-37.0); MCV 101.3 fL (80.0-100.0); MPV 10.8 fl. (7.2-11.1); NUCLEATED RBCS 0 /100WBC; PLATELET COUNT* 156 thou/uL (150-400); RBC 3.95 mil/uL (4.20-5.00); RDW-CV 15.1 % (10.5-14.5); WBC 28.4 thou/uL (4.0-11.0)
[2021-06-12 06:20] LABS: BE -11.3 mmol/L (-2 to +3)
[2021-06-12 06:22] LABS: PCO2 79.5 mmHg (35.0-45.0); pH 7.037 (7.340-7.450)
[2021-06-12 06:47] LABS: CALCIUM 7.1 mg/dL (8.5-10.1); CREATININE 1.4 mg/dL (0.6-1.3)
[2021-06-12 06:50] LABS: POTASSIUM 6.2 mmol/L (3.5-5.1)
[2021-06-12 06:58] LABS: ALBUMIN 2.5 g/dL (3.4-5.0); TOTAL BILIRUBIN 0.9 mg/dL (<0.1-1.0); TOTAL PROTEIN 5.9 g/dL (6.4-8.2)
[2021-06-12 07:01] LABS: URINE BLOOD TRACE (Negative); URINE CLARITY CLEAR; URINE COLOR YELLOW; URINE GLUCOSE-RANDOM NEGATIVE (Negative); URINE KETONES 1+ (Negative); URINE LEUKOCYTES-REFLEX NEGATIVE (Negative); URINE NITRITE-REFLEX NEGATIVE (Negative); URINE PROTEIN 1+ (Negative)
[2021-06-12 07:07] LABS: ABSOLUTE EOSINOPHILS 0.3 thou/uL (0.0-0.7); ABSOLUTE LYMPHOCYTES 6.5 thou/uL (0.8-5.3); ABSOLUTE MONOCYTES 0.9 thou/uL (0.0-1.2); ABSOLUTE NEUTROPHILS 20.7 thou/uL (1.6-8.1); PLATELET ESTIMATE ADEQUATE
[2021-06-12 07:09] LABS: URINE BILIRUBIN 1+ (Negative)
[2021-06-12 07:11] LABS: ICTOTEST (BILI CONFIRMATORY) Negative (Negative)
[2021-06-12 08:45] VITALS: BP 123/39
[2021-06-12 10:54] LABS: BE -7.5 mmol/L (-2 to +3); PCO2 45.1 mmHg (35.0-45.0)
[2021-06-12 10:57] LABS: pH 7.254 (7.340-7.450)
[2021-06-12 11:55] LABS: BE -3.4 mmol/L (-2 to +3); PCO2 43.2 mmHg (35.0-45.0); pH 7.334 (7.340-7.450)
[2021-06-12 11:57] LABS: PO2 164.2 mmHg (75.0-100.0)
[2021-06-12 12:03] LABS: ABSOLUTE LYMPHOCYTES 1.3 thou/uL (0.8-5.3); ABSOLUTE MONOCYTES 0.8 thou/uL (0.0-1.2); ABSOLUTE NEUTROPHILS 12.5 thou/uL (1.6-8.1); BASOPHILS 0.1 %; HEMATOCRIT 41.4 % (37.0-47.0); HEMOGLOBIN 13.5 gm/dL (12.0-15.0); LYMPHOCYTES 9.1 %; MCH 32.8 pg (26.0-34.0); MCHC 32.7 g/dL (28.0-37.0); MCV 100.5 fL (80.0-100.0); MONOCYTES 5.2 %; MPV 11.4 fl. (7.2-11.1); NUCLEATED RBCS 0 /100WBC; PLATELET COUNT* 102 thou/uL (150-400); POLYS 85.6 %; RBC 4.12 mil/uL (4.20-5.00); WBC 14.6 thou/uL (4.0-11.0)
[2021-06-12 12:25] LABS: APTT 32.6 Seconds (25.0-31.3); INR 1.3; PROTIME 13.5 Seconds (9.20-11.50)
[2021-06-12 12:36] LABS: ALBUMIN 3.1 g/dL (3.4-5.0); CREATININE 1.9 mg/dL (0.6-1.3); MAGNESIUM 1.2 mg/dL (1.8-2.4); TOTAL BILIRUBIN 1.6 mg/dL (<0.1-1.0); TOTAL PROTEIN 6.5 g/dL (6.4-8.2)
[2021-06-12 12:37] LABS: POTASSIUM 4.5 mmol/L (3.5-5.1)
[2021-06-12 15:29] LABS: BE -8.2 mmol/L (-2 to +3); PO2 VENOUS 48.8 mmHg (35.0-45.0)
[2021-06-12 17:12] LABS: CALCIUM 7.7 mg/dL (8.5-10.1); CREATININE 1.9 mg/dL (0.6-1.3); MAGNESIUM 2.6 mg/dL (1.8-2.4); POTASSIUM 4.3 mmol/L (3.5-5.1)
[2021-06-12 17:20] LABS: PCO2 41.3 mmHg (35.0-45.0)
[2021-06-12 17:43] LABS: PO2 125.6 mmHg (75.0-100.0); pH 7.269 (7.340-7.450)
[2021-06-12 18:41] LABS: BASOPHILS 0.1 %; NUCLEATED RBCS 0 /100WBC
[2021-06-12 18:43] LABS: ABSOLUTE LYMPHOCYTES 0.8 thou/uL (0.8-5.3); ABSOLUTE MONOCYTES 0.4 thou/uL (0.0-1.2); EOSINOPHILS 0.1 %; HEMATOCRIT 41.1 % (37.0-47.0); HEMOGLOBIN 13.5 gm/dL (12.0-15.0); LYMPHOCYTES 5.5 %; MCH 32.7 pg (26.0-34.0); MCHC 32.7 g/dL (28.0-37.0); MCV 99.8 fL (80.0-100.0); MONOCYTES 2.7 %; MPV 11.5 fl. (7.2-11.1); PLATELET COUNT* 103 thou/uL (150-400); POLYS 91.6 %; RBC 4.12 mil/uL (4.20-5.00); WBC 14.2 thou/uL (4.0-11.0)
[2021-06-13] VITALS (35 sets, daily range): BP systolic 75–150; BP diastolic 37–61
[2021-06-13 04:45] LABS: ABSOLUTE LYMPHOCYTES 0.7 thou/uL (0.8-5.3); ABSOLUTE MONOCYTES 0.3 thou/uL (0.0-1.2); ABSOLUTE NEUTROPHILS 12.2 thou/uL (1.6-8.1); BASOPHILS 0.1 %; HEMATOCRIT 35.8 % (37.0-47.0); HEMOGLOBIN 11.7 gm/dL (12.0-15.0); LYMPHOCYTES 5.1 %; MCH 32.8 pg (26.0-34.0); MCHC 32.8 g/dL (28.0-37.0); MCV 100.1 fL (80.0-100.0); MPV 11.7 fl. (7.2-11.1); NUCLEATED RBCS 0 /100WBC; PLATELET COUNT* 91 thou/uL (150-400); POLYS 92.8 %; RBC 3.57 mil/uL (4.20-5.00); WBC 13.2 thou/uL (4.0-11.0)
[2021-06-13 05:36] LABS: APTT 36.1 Seconds (25.0-31.3); INR 1.4; PROTIME 14.2 Seconds (9.20-11.50)
[2021-06-13 05:38] LABS: ALBUMIN 2.2 g/dL (3.4-5.0); CALCIUM 6.8 mg/dL (8.5-10.1); CREATININE 2.3 mg/dL (0.6-1.3); MAGNESIUM 2.5 mg/dL (1.8-2.4); POTASSIUM 3.5 mmol/L (3.5-5.1); TOTAL BILIRUBIN 1.2 mg/dL (<0.1-1.0); TOTAL PROTEIN 5.2 g/dL (6.4-8.2)
[2021-06-13 05:42] LABS: PHOSPHORUS* 3.4 mg/dL (2.5-4.9)
[2021-06-13 08:09] LABS: BE -5.2 mmol/L (-2 to +3); PCO2 47.8 mmHg (35.0-45.0); PO2 65.3 mmHg (75.0-100.0)
[2021-06-13 08:13] LABS: pH 7.276 (7.340-7.450)
--- NOTE | 2021-06-13 09:43 | EKG ---
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: : 1965 Requested By: Amparo Franco Order Number: [id number] MD: Josiah Cee Measurements Intervals [place] Rate: 72 P: 61 [place]: 185 QRS: -16 QRSD: 108 T: 138 QT: 403 QTc: 442 Interpretive Statements Sinus rhythm Probable left atrial enlargement LVH with secondary repolarization abnormality Anterior infarct, old possible Compared to ECG 06/10/2021 09:12:25 Myocardial infarct findings are more prominent Electronically Signed On 06-13-2021 9:43:33 DIGITAL X RAY SERVICE ENGINEER by Josiah Cee [email or web address] <ELECTRONICALLY SIGNED> By: Josiah Cee MD, FAC 06/13/21 0943 0419 0419 Josiah Cee MD, FAC /EPI
--- NOTE | 2021-06-13 09:45 | EKG ---
[place] [address] ELECTROCARDIOGRAM REPORT Name: HECTOR RENNER Room: [address] ADM IN ..#: [id number] Admission: 06/12/21 Attend Phys: Chris Joy Discharge: Date of : 61 Date of Service: 06/12/21501 Report #: [id number] THIS REPORT FOR: //name// [facility] ED Test Date: 2021-06-12 Test Time: 05:02:46 Pat Name: HECTOR RENNER Department: Room: [address] Gender: F Building Attendant: MR : 1965 Requested By: Amparo Franco Order Number: [id number] MD: Josiah Cee Measurements Intervals [place] Rate: 66 P: -49 NV: 203 QRS: -30 QRSD: 118 T: 117 QT: 424 QTc: 445 Interpretive Statements Sinus or ectopic atrial rhythm Borderline prolonged NV interval LVH with secondary repolarization abnormality Anterior infarct, old possible Minimal ST elevation, lateral leads Baseline wander in lead(s) V1,V2 Compared to ECG 06/12/2021 04:19:31 Ectopic atrial rhythm now present Nonspecific ST-T changes have occurred Sinus rhythm no longer present Myocardial infarct finding still present Electronically Signed On 06-13-2021 9:45:41 LANDSCAPE PAINTER by Josiah Cee [email or web address] <ELECTRONICALLY SIGNED> By: Josiah Cee MD, [facility] 06/13/21 0945 1 050 Josiah Cee MD, [facility] /EPI
[2021-06-13 12:51] LABS: BE -5.4 mmol/L (-2 to +3); PCO2 49.8 mmHg (35.0-45.0); PO2 79.3 mmHg (75.0-100.0)
--- NOTE | 2021-06-13 12:54 | 2DMMODE ---
[place] [address] 2 D/M-MODE ECHOCARDIOGRAM Name: RENNERHECTOR J Room: [address] ADM IN .R.#: [id number] Admission: 06/12/21 Attend Phys: Chris Joy Discharge: Date of : 61 Date of Service: 06/13/21 1253 Report #: [id number] THIS REPORT FOR: cc: Quinn Acosta Russell J. DO Holkins,Josiah Gabriel MD [facility] ~ APPROVED REPORT Study performed: 06/13/2021 09:44:46 EXAM: Comprehensive 2D, Doppler, and color-flow Echocardiogram Patient Location: In-Patient Room #: 004 Status: routine BSA: 1.92 HR: 57 bpm BP: 108/45 mmHg Rhythm: NSR Other Information Technically limited study due to poor endocardial definition. Indications Dyspnea Echo Enhancing Agent Indication: Endocardial border delineation Agent(s) / Amount(s) Used: Optison 3 cc 2D Dimensions IVSd: 12.95 (7-11mm) LVOT Diam: 19.85 (18-24mm) LVDd: 53.99 mm PWd: 11.87 (7-11mm) Ascending Ao: 26.72 (22-36mm) LVDs: 27.62 (25-40mm) Aortic Root: 25.62 mm Volumes Left Atrial Volume (Systole) LA ESV Index: 43.00 mL/m2 Aortic Valve AoV Peak Paras.: 3.50 m/s AO Peak Gr.: 48.88 [place] [address] 2 D/M-MODE ECHOCARDIOGRAM Name: HECTOR RENNER Room: [address] IN ..#: [id number] Admission: 06/12/21 Attend Phys: Chris Joy Discharge: Date of : 61 Date of Service: 06/13/21 1253 Report #: [id number] AO Mean Gr.: 28.16 mmHg AO V2 VTI: 70.12 cm Mitral Valve MV Mean Gr.: 2.67 mmHg E/A Ratio: 1.20 MV Decel. Time: 545.30 ms MV E Max Paras.: 1.18 m/s MV PHT: 158.14 ms MVA (PHT): 1.39 cm2 TDI E/Lateral E': 19.67 E/Medial E': 19.67 Medial E' Paras.: 0.06 m/s Lateral E' Paars.: 0.06 m/s Pulmonary Valve PV Peak Paras.: 1.27 m/s PV Peak Gr.: 6.46 mmHg Tricuspid Valve RAP Estimate: 5.00 mmHg TR Peak Gr.: 38.20 mmHg RVSP: 43.00 mmHg PA Pressure: 43.00 mmHg Left Ventricle The left ventricle is normal size. Apical hypokinesis is suggested. Mild concentric left ventricular hypertrophy. Left ventricular systolic function is normal. The left ventricular ejection fraction is within the normal range. LVEF is 55%. This study is not technically sufficient to allow evaluation of the LV diastolic function. Right Ventricle The right ventricle is normal size. The right ventricular systolic function is normal. Pacemaker lead is present in the right ventricle. Atria Left atrium is mildly dilated. The right atrium size is normal. Aortic Valve Mild aortic valve sclerosis. No aortic regurgitation is present. No hemodynamically significant valvular aortic stenosis. Mitral Valve The mitral valve is normal in structure. Mild mitral regurgitation. No evidence [place] [address] 2 D/M-MODE ECHOCARDIOGRAM Name: HECTOR RENNER Room: [address] IN [facility].#: [id number] Admission: 06/12/21 Attend Phys: Chris Joy Discharge: Date of : 61 Date of Service: 06/13/21 1253 Report #: [id number] Tricuspid Valve The tricuspid valve is normal in structure. Mild tricuspid regurgitation. Moderate pulmonary hypertension. Pulmonic Valve The pulmonary valve is normal in structure. There is no pulmonic valvular regurgitation. Great Vessels The aortic root is normal in size. IVC is normal in size and collapses >50% with inspiration. Pericardium There is no pericardial effusion. <Conclusion> The left ventricle is normal size. Mild concentric left ventricular hypertrophy. Left ventricular systolic function is normal. The left ventricular ejection fraction is within the normal range. LVEF is 55%. The right ventricle is normal size. Left atrium is mildly dilated. The right atrium size is normal. Mild aortic valve sclerosis. No aortic regurgitation is present. No hemodynamically significant valvular aortic stenosis. The mitral valve is normal in structure. Mild mitral regurgitation. The tricuspid valve is normal in structure. Mild tricuspid regurgitation. Moderate pulmonary hypertension. IVC is normal in size and collapses >50% with inspiration. There is no pericardial effusion. Pacemaker lead is present in the right ventricle. Apical hypokinesis is suggested. <ELECTRONICALLY SIGNED> By: Josiah Cee MD, FACC 06/13/21 1253 125 125 Josiah Cee MD, FACC /INF
[2021-06-13 13:59] LABS: ABSOLUTE LYMPHOCYTES 0.8 thou/uL (0.8-5.3); ABSOLUTE MONOCYTES 0.4 thou/uL (0.0-1.2); BASOPHILS 0.1 %; HEMATOCRIT 34.6 % (37.0-47.0); HEMOGLOBIN 11.4 gm/dL (12.0-15.0); LYMPHOCYTES 4.9 %; MCH 32.9 pg (26.0-34.0); MCHC 32.9 g/dL (28.0-37.0); MONOCYTES 2.8 %; MPV 11.6 fl. (7.2-11.1); NUCLEATED RBCS 0 /100WBC; PLATELET COUNT* 96 thou/uL (150-400); POLYS 92.2 %; RBC 3.46 mil/uL (4.20-5.00); RDW-CV 15.1 % (10.5-14.5); WBC 16.3 thou/uL (4.0-11.0)
[2021-06-13 14:07] LABS: CALCIUM 7.3 mg/dL (8.5-10.1); CREATININE 2.8 mg/dL (0.6-1.3); MAGNESIUM 2.7 mg/dL (1.8-2.4); POTASSIUM 3.7 mmol/L (3.5-5.1)
[2021-06-13 18:10] LABS: CALCIUM 7.3 mg/dL (8.5-10.1); CREATININE 2.8 mg/dL (0.6-1.3); MAGNESIUM 2.7 mg/dL (1.8-2.4)
[2021-06-13 18:35] LABS: BE -6.1 mmol/L (-2 to +3); PO2 73.4 mmHg (75.0-100.0)
[2021-06-13 18:38] LABS: pH 7.231 (7.340-7.450)
--- NOTE | 2021-06-13 19:49 | CON ---
[address] [address] CONSULTATION Name: HECTOR RENNER Room: [address] IN .R.#: [id number] Admission: 06/12/21 Attend Phys: Clifton Victoria Discharge: Date of : 61 Report #: [id number] THIS REPORT FOR: cc: Quinn Acosta Russell J. DO Pervez, Adeel MD ~ DATE OF CONSULTATION: 06/12/2021 REQUESTING PHYSICIAN: Jovi Eugene MD INDICATION FOR CONSULTATION: Acute hypoxemic respiratory failure. HISTORY OF PRESENT ILLNESS: A 56-year-old female who has an extensive history of smoking. There is not a mention of COPD on her records, but she does have a nebulizer at home and according to the family available, she may have been recently using oxygen while asleep as well. The patient does have a history of coronary artery disease and was recently admitted to this hospital with an ST segment elevation myocardial infarction. The patient also did have atrial fibrillation during the previous admission. Upon discharge, note that she is on antiplatelet agents, but was not on anticoagulation. The patient suddenly went into respiratory distress. Currently, she is endotracheally intubated. She has had a central line placed. She has also had pneumothorax. She has had a chest tube placed. When evaluated this morning, the patient was on 85% FiO2 and 5 of PEEP was saturating close to 99%. The patient currently is on 3 pressors, ____ phenylephrine at 0.55. She is on low-dose Levophed at 0.07 and epinephrine low dose of 0.07 as well. The patient is in acute renal failure. Creatinine at baseline is 0.8. Creatinine went up to 1.9 this morning. The patient has normal saline running at 125. Currently, there is no urine output. I had discussed with Dr. Faust before starting fluids as there is increase in pulmonary vascular congestion on the chest x-ray. For now, we are ventilating and oxygenating adequately. The patient is on the ventilator and therefore is unable to provide a further history or review of systems. PAST MEDICAL HISTORY: Coronary artery disease, diastolic cardiac heart failure, hypertrophic obstructive cardiomyopathy, hypertension. While there is not a mention of COPD on the records, history is consistent with COPD, TIA. She has an AICD in place due to an outside hospital arrest in the past, hyperlipidemia, left-sided nephrectomy, had donated a kidney to the son, hysterectomy, cholecystectomy, appendectomy. SOCIAL HISTORY: She is an active smoker. CURRENT MEDICATIONS: List in [employer] reviewed. HOME MEDICATIONS: [place] [address] CONSULTATION Name: HECTOR RENNER Room: [address] IN ..#: [id number] Admission: 06/12/21 Attend Phys: Clifton Victoria Discharge: Date of : 61 Report #: [id number] ALLERGIES: IODINE DYE. FAMILY HISTORY: No pertinent family history. VACCINATION HISTORY: She has had 2 doses of COVID-19 vaccine, but not the booster. PHYSICAL EXAMINATION: VITAL SIGNS: She is adequately sedated, but still tachypneic. Ventilator settings and sedation are reviewed. Vitals are in the records. These are reviewed. Endotracheal tube was high. We adjusted it. HEENT: Head is normocephalic and atraumatic. NECK: Does not show raised JVP, asymmetry, mass or lymph nodes. CHEST: Symmetrical expansion on inspection and palpation. On auscultation, breath sounds are bilaterally equal. No added sounds. There is a chest tube in place. HEART: Regular. There is no murmur. ABDOMEN: Soft and nontender. EXTREMITIES: Lower extremities show no edema, no calf tenderness. SKIN: Dry and intact. NEUROLOGIC: Moves all extremities bilaterally equally. No focal deficit identified. At this time, is only responding to things due to sedation. LABORATORY DATA: Chest x-ray and lab work in [facility] reviewed. ASSESSMENT AND PLAN: 1. Acute hypoxemic respiratory failure. Currently, she is ventilating and oxygenating adequately. Due to hypotension, decided to cut back propofol. We will continue with Versed and fentanyl. We will bring her respiratory rate down to the mid 20s as currently her I to E ratio is low. From a respiratory point of view despite having heart failure, she is likely to tolerate some fluid at this point. 2. Shock/hypotension. Her heart rate is 56. She is on high dose phenylephrine, low high-dose Levophed and low dose epinephrine at this time. We will await further input from Cardiology as well unless otherwise suggested by Cardiology. Asked the patient's nurse to gradually taper off of phenylephrine first as long as the heart rate is not high and then epinephrine if needed, increase Levophed. 3. Acute renal failure. There is increase in pulmonary vascular congestion on the chest x-ray. The patient initially also had a metabolic acidosis and I did give her bicarbonate. We are giving a liter of saline. We will follow response. If we are able to ventilate and oxygenate adequately, then despite the fact that she is in heart failure, she could be given more fluids. She is in shock [address] [place] [address] CONSULTATION Name: HECTOR RENNER Room: [address] IN [facility]#: [id number] Admission: 06/12/21 Attend Phys: Clifton Victoria Discharge: Date of : 61 Report #: [id number] and not having urine output at this time. 4. Acute congestive heart failure, diastolic. Cardiology service is on the case. 5. Elevated D-dimer. I understand the patient will shortly have a limited echo to look at the right heart. We will await results before considering anticoagulation as the patient is higher than average risk for anticoagulation. 6. Chronic obstructive pulmonary disease, nebulized bronchodilators. I did give her one dose of Solu-Medrol earlier. We will follow and likely give her more steroids cautiously. 7. Pulmonary infiltrates. It is possible that she aspirated during these events. Ordered Zosyn and also send off cultures. 8. History of coronary artery disease/recent myocardial infarction. 9. Deep venous thrombosis prophylaxis. If not for full anticoagulation, then I will consider starting subcutaneous heparin in the prophylactic dose. Note that she is on Effient as well. 10. Gastrointestinal prophylaxis, Protonix. The patient is critically ill at this time. Total time spent providing critical care to this patient today exceeds 45 minutes. <ELECTRONICALLY SIGNED> By: Ashu Mendez MD 06/13/21 1949 1622 [id number] Mendez MD /nt
[2021-06-14] VITALS (40 sets, daily range): BP systolic 70–178; BP diastolic 43–84
[2021-06-14 08:13] LABS: BE -2.4 mmol/L (-2 to +3); PO2 69.1 mmHg (75.0-100.0); pH 7.285 (7.340-7.450)
[2021-06-14 08:19] LABS: PCO2 53.3 mmHg (35.0-45.0)
[2021-06-14 10:01] LABS: ABSOLUTE LYMPHOCYTES 0.8 thou/uL (0.8-5.3); ABSOLUTE MONOCYTES 0.5 thou/uL (0.0-1.2); ABSOLUTE NEUTROPHILS 17.2 thou/uL (1.6-8.1); BASOPHILS 0.1 %; HEMATOCRIT 35.8 % (37.0-47.0); HEMOGLOBIN 11.6 gm/dL (12.0-15.0); LYMPHOCYTES 4.5 %; MCH 32.4 pg (26.0-34.0); MCHC 32.4 g/dL (28.0-37.0); MONOCYTES 2.9 %; MPV 12.5 fl. (7.2-11.1); NUCLEATED RBCS 0 /100WBC; PLATELET COUNT* 119 thou/uL (150-400); POLYS 92.5 %; RBC 3.58 mil/uL (4.20-5.00); RDW-CV 15.3 % (10.5-14.5); WBC 18.6 thou/uL (4.0-11.0)
[2021-06-14 11:40] LABS: INR 1.1; PROTIME 11.6 Seconds (9.20-11.50)
[2021-06-14 11:41] LABS: APTT 34.2 Seconds (25.0-31.3)
[2021-06-14 11:42] LABS: CREATININE 2.7 mg/dL (0.6-1.3); POTASSIUM 3.8 mmol/L (3.5-5.1)
[2021-06-14 11:43] LABS: CALCIUM 7.6 mg/dL (8.5-10.1); MAGNESIUM 2.5 mg/dL (1.8-2.4); TOTAL BILIRUBIN 1.5 mg/dL (<0.1-1.0); TOTAL PROTEIN 6.8 g/dL (6.4-8.2)
--- NOTE | 2021-06-14 14:28 | CON ---
[facility] [address] [place] [address] CONSULTATION Name: HECTOR RENNER Room: [address] ADM IN M.R.#: [id number] Admission: 06/12/21 Attend Phys: Clifton Victoria Discharge: Date of : 61 Report #: [id number] THIS REPORT FOR: cc: Quinn Acosta Russell J. DO Liston, Michael J. MD [facility] ~ cc: Quinn Acosta DO DATE OF CONSULTATION: 06/12/2021 CARDIOLOGY CONSULT INDICATION: Acute heart failure. HISTORY OF PRESENT ILLNESS: The patient is a 56-year-old white female who is well known to our service. She was here last week. On the of this month she presented wit sob. She was in atrial fibrillation with a rapid ventricular response rate. She converted to sinus rhythm on IV amiodarone. She ruled in for non Stemi myocardial infarction. She underwent uneventful drug-eluting stent placement to an 80% proximal right coronary artery stenoses. She has had no prior coronary intervention. Left ventricular systolic function at that time was estimated to be 50%-55% by ventriculography. There were no wall motion abnormalities noted. Of note, her LVEDP was 30, which is moderately elevated consistent with diastolic heart failure. The patient apparently was discharged over the weekend to home, but had continued problems with severe shortness of breath and dyspnea. The patient ultimately was reevaluated in the Emergency Room with complaints of shortness of breath consistent with acute respiratory distress. The patient was initially placed on BiPAP, but ultimately required tracheal intubation and ventilator support. At the time of my evaluation, the patient is in the ICU and intubated. Reports from the family are that she was short of breath and continued to be dyspneic. She actually requested 911 to be called because of her shortness of breath. She was not having overt chest pain. PAST MEDICAL HISTORY: 1. Hypertrophic obstructive cardiomyopathy that was felt to be fairly mild with the exception that she did have a cardiac arrest at outside hospital during a cardiac procedure. Etiology was not clearly defined. Therefore, ICD was placed for secondary prevention. She has had no discharges from her ICD. 2. Hypertension. 3. Coronary artery disease with recent intervention as outlined above. 4. Diastolic heart failure. 5. COPD. 6. Chronic tobacco use. 7[place] [address] CONSULTATION Name: RENNERHECTOR Room: [address] IN [facility]#: [id number] Admission: 06/12/21 Attend Phys: Clifton Victoria Discharge: Date of : 61 Report #: [id number] 8. Chronically abnormal EKG due to underlying HOCM. 9. Hyperlipidemia. 10. Left nephrectomy as a donor to her son. 11. Hysterectomy. 12. Cholecystectomy. 13. Appendectomy. 14. Paroxysmal atrial fibrillation. ALLERGIES: None documented. HOME MEDICATIONS: Amiodarone 200 mg presently taking 400 b.i.d., albuterol nebulizer treatments q.i.d., aspirin 81 mg daily, atorvastatin 40 mg at bedtime, carvedilol 25 mg b.i.d., furosemide 20 mg daily, omeprazole 20 mg daily, prasugrel 10 mg daily, Ultram 50 mg q. 4 hours p.r.n., Ambien 5 mg at bedtime. FAMILY HISTORY: The patient's father apparently had a heart attack in his 40s. SOCIAL HISTORY: The patient is . She lives in [place]. She smokes half a pack of cigarettes daily. She has a history of heavy alcohol use in the past, but none presently. REVIEW OF SYSTEMS: Not obtainable. PHYSICAL EXAMINATION: VITAL SIGNS: Blood pressure 101/56, pulse 64. GENERAL: This is an intubated lady who is moderately obese. HEENT: Head is normocephalic, atraumatic. The patient is spontaneously opening eyes. Extraocular muscles appear to be intact. Mucous membranes appear moist. NECK: Shows a thick neck without obvious JVD. CHEST: Breath sounds diminished throughout. CARDIOVASCULAR: Regular rhythm. I do not appreciate gallop. Soft grade 1/6 systolic ejection murmur. ABDOMEN: Protuberant, soft. Bowel sounds present. EXTREMITIES: No edema, warm. Peripheral pulses 2+ and palpable. DIAGNOSTIC DATA: A 12-lead EKG shows sinus rhythm with diffuse T-wave inversion throughout that is unchanged from previous EKGs. LABORATORY DATA: Reviewed. Sodium 136, potassium 4.5, chloride 102, bicarbonate 21, BUN 11, creatinine 1.9, serum glucose 161. High sensitivity troponin on arrival 347, subsequently 1146, further troponin pending. NT-proBNP 3396. White blood cell count 14.6, hemoglobin 13.5, platelet count 102,000. Chest x-ray shows heart size to be upper limits of normal, possible pulmonary [facility] [address] [place] [address] CONSULTATION Name: HECTOR RENNER Room: [address] IN [place].#: [id number] Admission: 06/12/21 Attend Phys: Clifton Victoria Discharge: Date of : 61 Report #: [id number] vascular congestion, right-sided chest tube in place with improvement in pneumothorax. IMPRESSION AND RECOMMENDATIONS: 1. Acute diastolic heart failure. The patient is known to have labile and often times high blood pressure. I suspect she had acute hypertension and volume overload with acute diastolic heart failure. Presently, her volume status is stable. She is actually requiring some pressors for blood pressure support. I would not aggressively diurese at this point in time. Respiratory status is stable on current vent settings. 2. Elevated troponin, likely due to cardiac strain in the setting of acute respiratory failure. She did have a recent stent placed. Doubt this represents any type of stent thrombosis. We will follow clinically at this time. Continue aspirin and Plavix through NG tube. 3. Hypertension. Presently, she is requiring some pressor agents. I imagine these can be weaned soon and she will likely require resumption of her home antihypertensive regimen with adjustments as needed. 4. Dyslipidemia. Continue statin agent per NG tube. 5. Hypertrophic obstructive cardiomyopathy. Her gradients have been fairly mild in the past. At this point in time, I would avoid any significant diuresis as this may exacerbate gradients. Resume beta alma when she is able to tolerate this. At this point in time, she is receiving a gentle fluid bolus to support her blood pressure. 6. Implantable cardioverter-defibrillator in place for secondary prevention. She has had no discharges from her implantable cardioverter-defibrillator. No evidence of ventricular arrhythmias in the recent past. 7. Paroxysmal atrial fibrillation. Continue amiodarone per NG tube. Critical care time spent with patient was 45 minutes <ELECTRONICALLY SIGNED> By: Akbar Faust MD, FACC 06/14/21 1428 1422 1550Michael Rere Faust MD, [facility] /nt
[2021-06-14 16:31] LABS: BE -1.9 mmol/L (-2 to +3)
[2021-06-14 16:42] LABS: PCO2 62.1 mmHg (35.0-45.0); pH 7.246 (7.340-7.450)
[2021-06-14 20:19] LABS: BE 0.2 mmol/L (-2 to +3); PO2 91.1 mmHg (75.0-100.0)
[2021-06-14 20:28] LABS: PCO2 58.7 mmHg (35.0-45.0); pH 7.291 (7.340-7.450)
[2021-06-14 22:14] LABS: ABSOLUTE MONOCYTES 0.7 thou/uL (0.0-1.2); ABSOLUTE NEUTROPHILS 18.6 thou/uL (1.6-8.1); BASOPHILS 0.2 %; HEMATOCRIT 34.7 % (37.0-47.0); HEMOGLOBIN 11.2 gm/dL (12.0-15.0); LYMPHOCYTES 5.1 %; MCH 32.3 pg (26.0-34.0); MCHC 32.4 g/dL (28.0-37.0); MCV 99.9 fL (80.0-100.0); MONOCYTES 3.3 %; MPV 12.3 fl. (7.2-11.1); NUCLEATED RBCS 0 /100WBC; PLATELET COUNT* 157 thou/uL (150-400); POLYS 91.4 %; RBC 3.47 mil/uL (4.20-5.00); RDW-CV 14.8 % (10.5-14.5); WBC 20.4 thou/uL (4.0-11.0)
[2021-06-14 22:29] LABS: CALCIUM 7.7 mg/dL (8.5-10.1); CREATININE 2.8 mg/dL (0.6-1.3); MAGNESIUM 2.5 mg/dL (1.8-2.4); POTASSIUM 4.1 mmol/L (3.5-5.1)
[2021-06-15] VITALS (31 sets, daily range): BP systolic 81–182; BP diastolic 43–85
[2021-06-15 04:46] LABS: ABSOLUTE LYMPHOCYTES 0.8 thou/uL (0.8-5.3); ABSOLUTE MONOCYTES 1.3 thou/uL (0.0-1.2); ABSOLUTE NEUTROPHILS 18.6 thou/uL (1.6-8.1); BASOPHILS 0.1 %; HEMATOCRIT 32.2 % (37.0-47.0); HEMOGLOBIN 10.4 gm/dL (12.0-15.0); LYMPHOCYTES 3.7 %; MCH 32.7 pg (26.0-34.0); MCHC 32.5 g/dL (28.0-37.0); MCV 100.7 fL (80.0-100.0); MONOCYTES 6.1 %; MPV 11.7 fl. (7.2-11.1); NUCLEATED RBCS 0 /100WBC; PLATELET COUNT* 172 thou/uL (150-400); POLYS 90.1 %; RDW-CV 15.8 % (10.5-14.5); WBC 20.7 thou/uL (4.0-11.0)
[2021-06-15 05:12] LABS: CALCIUM 7.4 mg/dL (8.5-10.1); CREATININE 3.4 mg/dL (0.6-1.3); PHOSPHORUS* 7.1 mg/dL (2.5-4.9); POTASSIUM 4.9 mmol/L (3.5-5.1)
[2021-06-15 05:22] LABS: ALBUMIN 2.8 g/dL (3.4-5.0); CALCIUM 7.5 mg/dL (8.5-10.1); CREATININE 3.4 mg/dL (0.6-1.3); MAGNESIUM 2.4 mg/dL (1.8-2.4); POTASSIUM 4.8 mmol/L (3.5-5.1); TOTAL BILIRUBIN 1.5 mg/dL (<0.1-1.0); TOTAL PROTEIN 5.9 g/dL (6.4-8.2)
[2021-06-15 05:58] LABS: APTT 29.3 Seconds (25.0-31.3); INR 1.1
[2021-06-15 09:23] LABS: BE -5.2 mmol/L (-2 to +3); PO2 84.5 mmHg (75.0-100.0)
[2021-06-15 09:30] LABS: PCO2 80.8 mmHg (35.0-45.0)
[2021-06-15 12:54] LABS: BE -3.2 mmol/L (-2 to +3); PO2 77.6 mmHg (75.0-100.0)
[2021-06-15 12:56] LABS: PCO2 57.9 mmHg (35.0-45.0); pH 7.247 (7.340-7.450)
[2021-06-15 17:06] LABS: BE -3.6 mmol/L (-2 to +3); PCO2 40.5 mmHg (35.0-45.0); PO2 88.1 mmHg (75.0-100.0); pH 7.348 (7.340-7.450)
[2021-06-16] VITALS (39 sets, daily range): BP systolic 88–180; BP diastolic 41–82
[2021-06-16 06:06] LABS: ALBUMIN 2.4 g/dL (3.4-5.0); CALCIUM 7.4 mg/dL (8.5-10.1); MAGNESIUM 2.3 mg/dL (1.8-2.4); POTASSIUM 3.9 mmol/L (3.5-5.1); TOTAL PROTEIN 5.4 g/dL (6.4-8.2)
[2021-06-16 06:09] LABS: PHOSPHORUS* 6.6 mg/dL (2.5-4.9)
[2021-06-16 06:30] LABS: HEMATOCRIT 27.9 % (37.0-47.0); HEMOGLOBIN 9.1 gm/dL (12.0-15.0); MCH 32.7 pg (26.0-34.0); MCHC 32.7 g/dL (28.0-37.0); MCV 99.9 fL (80.0-100.0); MPV 11.3 fl. (7.2-11.1); NUCLEATED RBCS 0 /100WBC; PLATELET COUNT* 174 thou/uL (150-400); RDW-CV 15.6 % (10.5-14.5); WBC 13.2 thou/uL (4.0-11.0)
[2021-06-16 08:07] LABS: ABSOLUTE EOSINOPHILS 0.1 thou/uL (0.0-0.7); ABSOLUTE LYMPHOCYTES 1.2 thou/uL (0.8-5.3); ABSOLUTE MONOCYTES 1.2 thou/uL (0.0-1.2); ABSOLUTE NEUTROPHILS 10.7 thou/uL (1.6-8.1); ATYPICAL LYMPHS 2 %
[2021-06-16 08:08] LABS: PLATELET ESTIMATE ADEQUATE
[2021-06-16 10:03] LABS: BE -2.4 mmol/L (-2 to +3); PO2 81.2 mmHg (75.0-100.0)
[2021-06-16 10:17] LABS: PCO2 63.6 mmHg (35.0-45.0); pH 7.228 (7.340-7.450)
[2021-06-16 18:46] LABS: BE -2.5 mmol/L (-2 to +3); PO2 105.9 mmHg (75.0-100.0)
[2021-06-16 18:49] LABS: pH 7.298 (7.340-7.450)
[2021-06-16 21:35] LABS: BE -0.5 mmol/L (-2 to +3); PO2 72.9 mmHg (75.0-100.0)
[2021-06-16 21:37] LABS: PCO2 60.4 mmHg (35.0-45.0); pH 7.271 (7.340-7.450)
[2021-06-17] VITALS (50 sets, daily range): BP systolic 75–140; BP diastolic 45–67
[2021-06-17 00:36] LABS: BE 0.1 mmol/L (-2 to +3); PCO2 49.7 mmHg (35.0-45.0); pH 7.341 (7.340-7.450)
[2021-06-17 09:58] LABS: ALBUMIN 2.3 g/dL (3.4-5.0); CALCIUM 7.6 mg/dL (8.5-10.1); POTASSIUM 3.5 mmol/L (3.5-5.1); TOTAL BILIRUBIN 0.9 mg/dL (<0.1-1.0)
[2021-06-17 10:50] LABS: ALBUMIN 2.1 g/dL (3.4-5.0); CALCIUM 7.5 mg/dL (8.5-10.1); CREATININE 4.2 mg/dL (0.6-1.3); POTASSIUM 3.5 mmol/L (3.5-5.1); TOTAL BILIRUBIN 0.8 mg/dL (<0.1-1.0); TOTAL PROTEIN 5.4 g/dL (6.4-8.2)
[2021-06-18] VITALS (73 sets, daily range): BP systolic 97–160; BP diastolic 48–75
[2021-06-18 08:14] LABS: ABSOLUTE LYMPHOCYTES 0.7 thou/uL (0.8-5.3); ABSOLUTE MONOCYTES 0.6 thou/uL (0.0-1.2); ABSOLUTE NEUTROPHILS 14.2 thou/uL (1.6-8.1); BASOPHILS 0.1 %; HEMATOCRIT 22.8 % (37.0-47.0); HEMOGLOBIN 7.4 gm/dL (12.0-15.0); LYMPHOCYTES 4.2 %; MCH 32.1 pg (26.0-34.0); MCHC 32.5 g/dL (28.0-37.0); MCV 98.8 fL (80.0-100.0); MONOCYTES 4.1 %; MPV 10.5 fl. (7.2-11.1); NUCLEATED RBCS 1 /100WBC; PLATELET COUNT* 191 thou/uL (150-400); POLYS 91.6 %; RBC 2.31 mil/uL (4.20-5.00); RDW-CV 15.2 % (10.5-14.5); WBC 15.6 thou/uL (4.0-11.0)
[2021-06-18 08:19] LABS: CALCIUM 7.7 mg/dL (8.5-10.1); CREATININE 4.2 mg/dL (0.6-1.3); MAGNESIUM 2.5 mg/dL (1.8-2.4); POTASSIUM 3.5 mmol/L (3.5-5.1)
[2021-06-18 11:20] LABS: BE 3.7 mmol/L (-2 to +3); PCO2 48.4 mmHg (35.0-45.0); pH 7.396 (7.340-7.450)
[2021-06-18 14:20] LABS: ABSOLUTE LYMPHOCYTES 0.5 thou/uL (0.8-5.3); ABSOLUTE MONOCYTES 0.4 thou/uL (0.0-1.2); ABSOLUTE NEUTROPHILS 15.4 thou/uL (1.6-8.1); BASOPHILS 0.1 %; EOSINOPHILS 0.2 %; HEMATOCRIT 23.3 % (37.0-47.0); HEMOGLOBIN 7.7 gm/dL (12.0-15.0); LYMPHOCYTES 3.2 %; MCH 32.5 pg (26.0-34.0); MCHC 32.8 g/dL (28.0-37.0); MCV 99.1 fL (80.0-100.0); MONOCYTES 2.5 %; MPV 10.5 fl. (7.2-11.1); NUCLEATED RBCS 1 /100WBC; PLATELET COUNT* 196 thou/uL (150-400); RBC 2.36 mil/uL (4.20-5.00); RDW-CV 15.5 % (10.5-14.5); WBC 16.4 thou/uL (4.0-11.0)
[2021-06-18 14:24] LABS: CALCIUM 7.8 mg/dL (8.5-10.1); CREATININE 4.5 mg/dL (0.6-1.3); MAGNESIUM 2.4 mg/dL (1.8-2.4); POTASSIUM 3.2 mmol/L (3.5-5.1)
[2021-06-18 14:30] LABS: LIPASE 57 U/L (73-393); TRIGLYCERIDE 173 mg/dL (<150)
[2021-06-18 14:32] LABS: APTT 26.2 Seconds (25.0-31.3); PROTIME 10.3 Seconds (9.20-11.50)
[2021-06-18 22:06] LABS: MYCOPLASMA PNEUMONIA IgM <770 U/mL (0-769)
[2021-06-18 23:06] LABS: MYCOPLASMA PNEUMONIA IgG 237 U/mL (0-99)
[2021-06-19] VITALS (79 sets, daily range): BP systolic 95–157; BP diastolic 48–75
[2021-06-19 04:23] LABS: HEMATOCRIT 24.9 % (37.0-47.0); HEMOGLOBIN 8.1 gm/dL (12.0-15.0); MCH 32.2 pg (26.0-34.0); MCHC 32.7 g/dL (28.0-37.0); MCV 98.5 fL (80.0-100.0); MPV 10.4 fl. (7.2-11.1); NUCLEATED RBCS 1 /100WBC; PLATELET COUNT* 227 thou/uL (150-400); RBC 2.52 mil/uL (4.20-5.00); RDW-CV 15.2 % (10.5-14.5); WBC 20.4 thou/uL (4.0-11.0)
[2021-06-19 04:52] LABS: ALBUMIN 2.2 g/dL (3.4-5.0); CALCIUM 8.1 mg/dL (8.5-10.1); CREATININE 4.2 mg/dL (0.6-1.3); POTASSIUM 3.1 mmol/L (3.5-5.1); TOTAL BILIRUBIN 0.7 mg/dL (<0.1-1.0); TOTAL PROTEIN 6.2 g/dL (6.4-8.2)
[2021-06-19 08:22] LABS: BE 2.5 mmol/L (-2 to +3); PCO2 46.3 mmHg (35.0-45.0); PO2 82.4 mmHg (75.0-100.0); pH 7.396 (7.340-7.450)
[2021-06-19 09:27] LABS: ABSOLUTE LYMPHOCYTES 0.6 thou/uL (0.8-5.3); ABSOLUTE MONOCYTES 0.4 thou/uL (0.0-1.2); ABSOLUTE NEUTROPHILS 19.4 thou/uL (1.6-8.1); PLATELET ESTIMATE ADEQUATE
--- NOTE | 2021-06-19 12:28 | EKG ---
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 : 1965 Requested By: Alexis Juares Order Number: [id number] Reading MD: Akbar Faust Measurements Intervals [place] Rate: 102 P: [place]: QRS: 16 QRSD: 107 T: 228 QT: 423 QTc: 552 Interpretive Statements Atrial fibrillation RSR' in V1 or V2, probably normal variant Repol abnrm suggests ischemia, diffuse leads Prolonged QT interval Compared to ECG 06/12/2021 05:02:46 RSR' in V1 or V2 now present Possible ischemia now present Prolonged QT interval now present Ectopic atrial rhythm no longer present Left ventricular hypertrophy no longer present Myocardial infarct finding no longer present ST (T wave) deviation no longer present Electronically Signed On 06-19-2021 12:28:06 SCHEDULE ANALYST by Akbar Faust [email or web address] <ELECTRONICALLY SIGNED> By: Akbar Faust MD, [facility] 06/19/21 1228 0835 0835 Akbar Faust MD, [facility] /EPI
[2021-06-19 17:22] LABS: CALCIUM 8.3 mg/dL (8.5-10.1); CREATININE 4.2 mg/dL (0.6-1.3); MAGNESIUM 2.7 mg/dL (1.8-2.4); POTASSIUM 3.9 mmol/L (3.5-5.1)
[2021-06-20] VITALS (11 sets, daily range): BP systolic 96–132; BP diastolic 51–71
[2021-06-20 03:34] LABS: ABSOLUTE LYMPHOCYTES 0.4 thou/uL (0.8-5.3); HEMOGLOBIN 8.3 gm/dL (12.0-15.0); WBC 20.8 thou/uL (4.0-11.0)
[2021-06-20 03:36] LABS: ABSOLUTE BASOPHILS 0.2 thou/uL (0.0-0.2); ABSOLUTE MONOCYTES 0.7 thou/uL (0.0-1.2); ABSOLUTE NEUTROPHILS 19.5 thou/uL (1.6-8.1); BASOPHILS 1.1 %; HEMATOCRIT 25.2 % (37.0-47.0); LYMPHOCYTES 1.9 %; MCH 32.4 pg (26.0-34.0); MCV 98.1 fL (80.0-100.0); MONOCYTES 3.2 %; MPV 10.3 fl. (7.2-11.1); NUCLEATED RBCS 0 /100WBC; PLATELET COUNT* 242 thou/uL (150-400); POLYS 93.8 %; RBC 2.57 mil/uL (4.20-5.00); RDW-CV 15.5 % (10.5-14.5)
[2021-06-20 04:14] LABS: ALBUMIN 2.2 g/dL (3.4-5.0); CALCIUM 8.4 mg/dL (8.5-10.1); CREATININE 4.1 mg/dL (0.6-1.3); TOTAL BILIRUBIN 0.8 mg/dL (<0.1-1.0); TOTAL PROTEIN 6.2 g/dL (6.4-8.2)
[2021-06-20 04:41] LABS: ALBUMIN 2.3 g/dL (3.4-5.0); CALCIUM 8.4 mg/dL (8.5-10.1); CREATININE 4.2 mg/dL (0.6-1.3); MAGNESIUM 2.6 mg/dL (1.8-2.4); PHOSPHORUS* 7.5 mg/dL (2.5-4.9); POTASSIUM 4.2 mmol/L (3.5-5.1)
[2021-06-20 08:10] LABS: PCO2 44.6 mmHg (35.0-45.0); PO2 105.4 mmHg (75.0-100.0); pH 7.402 (7.340-7.450)
[2021-06-20 18:20] LABS: CALCIUM 7.9 mg/dL (8.5-10.1); CREATININE 3.9 mg/dL (0.6-1.3); MAGNESIUM 2.5 mg/dL (1.8-2.4)
[2021-06-21] VITALS (96 sets, daily range): BP systolic 63–174; BP diastolic 37–92
[2021-06-21 05:41] LABS: CALCIUM 7.9 mg/dL (8.5-10.1); CREATININE 3.9 mg/dL (0.6-1.3); POTASSIUM 3.3 mmol/L (3.5-5.1)
[2021-06-21 13:08] LABS: BE 5.4 mmol/L (-2 to +3); PCO2 41.9 mmHg (35.0-45.0); pH 7.467 (7.340-7.450)
[2021-06-21 14:39] LABS: ABSOLUTE NEUTROPHILS 20.8 thou/uL (1.6-8.1); HEMOGLOBIN 8.6 gm/dL (12.0-15.0); MPV 10.6 fl. (7.2-11.1); NUCLEATED RBCS 1 /100WBC; PLATELET COUNT* 277 thou/uL (150-400)
[2021-06-21 14:40] LABS: ABSOLUTE BASOPHILS 0.1 thou/uL (0.0-0.2); ABSOLUTE LYMPHOCYTES 0.6 thou/uL (0.8-5.3); ABSOLUTE MONOCYTES 0.7 thou/uL (0.0-1.2); BASOPHILS 0.3 %; HEMATOCRIT 26.2 % (37.0-47.0); LYMPHOCYTES 2.9 %; MCH 32.8 pg (26.0-34.0); MCV 99.4 fL (80.0-100.0); MONOCYTES 3.1 %; POLYS 93.7 %; RBC 2.63 mil/uL (4.20-5.00); RDW-CV 16.6 % (10.5-14.5); WBC 22.2 thou/uL (4.0-11.0)
[2021-06-21 14:57] LABS: ALBUMIN 2.2 g/dL (3.4-5.0); CREATININE 3.9 mg/dL (0.6-1.3); DIRECT BILIRUBIN 0.3 mg/dL (<0.1-0.3); MAGNESIUM 2.5 mg/dL (1.8-2.4); POTASSIUM 4.1 mmol/L (3.5-5.1); TOTAL BILIRUBIN 0.6 mg/dL (<0.1-1.0); TOTAL PROTEIN 5.5 g/dL (6.4-8.2)
[2021-06-22] VITALS (32 sets, daily range): BP systolic 71–122; BP diastolic 46–73
[2021-06-22 07:35] LABS: ALBUMIN 2.2 g/dL (3.4-5.0); CALCIUM 8.5 mg/dL (8.5-10.1); CREATININE 3.7 mg/dL (0.6-1.3); MAGNESIUM 2.5 mg/dL (1.8-2.4); PHOSPHORUS* 8.1 mg/dL (2.5-4.9); POTASSIUM 4.4 mmol/L (3.5-5.1)
[2021-06-23] VITALS (23 sets, daily range): BP systolic 99–135; BP diastolic 55–68
[2021-06-23 04:54] LABS: HEMATOCRIT 22.9 % (37.0-47.0); HEMOGLOBIN 7.3 gm/dL (12.0-15.0); MCH 31.7 pg (26.0-34.0); MCHC 31.7 g/dL (28.0-37.0); MCV 100.2 fL (80.0-100.0); MPV 10.5 fl. (7.2-11.1); NUCLEATED RBCS 0 /100WBC; PLATELET COUNT* 251 thou/uL (150-400); RBC 2.29 mil/uL (4.20-5.00); RDW-CV 16.8 % (10.5-14.5); WBC 27.8 thou/uL (4.0-11.0)
[2021-06-23 05:14] LABS: LIPASE 125 U/L (73-393); TRIGLYCERIDE 216 mg/dL (<150)
[2021-06-23 05:20] LABS: ALBUMIN 1.9 g/dL (3.4-5.0); CALCIUM 6.8 mg/dL (8.5-10.1); MAGNESIUM 2.1 mg/dL (1.8-2.4); PHOSPHORUS* 6.8 mg/dL (2.5-4.9); TOTAL BILIRUBIN 0.5 mg/dL (<0.1-1.0); TOTAL PROTEIN 4.8 g/dL (6.4-8.2)
[2021-06-23 06:41] LABS: CREATININE 2.7 mg/dL (0.6-1.3)
[2021-06-23 07:40] LABS: ABSOLUTE LYMPHOCYTES 1.7 thou/uL (0.8-5.3); ABSOLUTE MONOCYTES 1.1 thou/uL (0.0-1.2); PLATELET ESTIMATE ADEQUATE
[2021-06-23 12:56] LABS: ABSOLUTE BASOPHILS 0.1 thou/uL (0.0-0.2); ABSOLUTE LYMPHOCYTES 1.1 thou/uL (0.8-5.3); ABSOLUTE MONOCYTES 0.8 thou/uL (0.0-1.2); ABSOLUTE NEUTROPHILS 23.7 thou/uL (1.6-8.1); BASOPHILS 0.3 %; HEMATOCRIT 23.4 % (37.0-47.0); HEMOGLOBIN 7.5 gm/dL (12.0-15.0); LYMPHOCYTES 4.1 %; MCH 31.8 pg (26.0-34.0); MCHC 32.2 g/dL (28.0-37.0); MPV 10.5 fl. (7.2-11.1); NUCLEATED RBCS 0 /100WBC; PLATELET COUNT* 244 thou/uL (150-400); POLYS 92.6 %; RBC 2.36 mil/uL (4.20-5.00); RDW-CV 16.4 % (10.5-14.5); WBC 25.6 thou/uL (4.0-11.0)
[2021-06-23 16:59] LABS: BE 0.4 mmol/L (-2 to +3); PCO2 42.6 mmHg (35.0-45.0); PO2 65.8 mmHg (75.0-100.0); pH 7.394 (7.340-7.450)
[2021-06-24] VITALS (22 sets, daily range): BP systolic 91–138; BP diastolic 48–72
[2021-06-24 04:36] LABS: ABSOLUTE LYMPHOCYTES 0.8 thou/uL (0.8-5.3); ABSOLUTE MONOCYTES 0.4 thou/uL (0.0-1.2); ABSOLUTE NEUTROPHILS 18.8 thou/uL (1.6-8.1); HEMATOCRIT 23.5 % (37.0-47.0); HEMOGLOBIN 7.8 gm/dL (12.0-15.0); LYMPHOCYTES 4.1 %; MCH 32.8 pg (26.0-34.0); MCV 99.4 fL (80.0-100.0); MONOCYTES 1.9 %; NUCLEATED RBCS 0 /100WBC; PLATELET COUNT* 232 thou/uL (150-400); RBC 2.37 mil/uL (4.20-5.00); RDW-CV 16.8 % (10.5-14.5)
[2021-06-24 05:12] LABS: ALBUMIN 2.1 g/dL (3.4-5.0); CALCIUM 7.6 mg/dL (8.5-10.1); CREATININE 2.4 mg/dL (0.6-1.3); TOTAL BILIRUBIN 0.5 mg/dL (<0.1-1.0); TOTAL PROTEIN 5.4 g/dL (6.4-8.2)
[2021-06-24 06:28] LABS: ALBUMIN 2.3 g/dL (3.4-5.0); CALCIUM 7.6 mg/dL (8.5-10.1); CREATININE 2.5 mg/dL (0.6-1.3); MAGNESIUM 2.1 mg/dL (1.8-2.4); PHOSPHORUS* 7.2 mg/dL (2.5-4.9)
[2021-06-24 13:59] LABS: BE 0.4 mmol/L (-2 to +3); PCO2 41.7 mmHg (35.0-45.0); PO2 73.1 mmHg (75.0-100.0)
[2021-06-25] VITALS (34 sets, daily range): BP systolic 80–138; BP diastolic 51–75
[2021-06-25 13:41] LABS: ABSOLUTE BASOPHILS 0.1 thou/uL (0.0-0.2); ABSOLUTE LYMPHOCYTES 0.4 thou/uL (0.8-5.3); ABSOLUTE MONOCYTES 0.3 thou/uL (0.0-1.2); ABSOLUTE NEUTROPHILS 19.8 thou/uL (1.6-8.1); BASOPHILS 0.2 %; HEMATOCRIT 21.5 % (37.0-47.0); LYMPHOCYTES 1.9 %; MCH 32.1 pg (26.0-34.0); MCHC 30.8 g/dL (28.0-37.0); MCV 104.1 fL (80.0-100.0); MONOCYTES 1.6 %; MPV 11.2 fl. (7.2-11.1); NUCLEATED RBCS 0 /100WBC; PLATELET COUNT* 186 thou/uL (150-400); POLYS 96.3 %; RBC 2.06 mil/uL (4.20-5.00); RDW-CV 17.5 % (10.5-14.5); WBC 20.6 thou/uL (4.0-11.0)
[2021-06-25 13:48] LABS: HEMOGLOBIN 6.6 gm/dL (12.0-15.0)
[2021-06-25 14:05] LABS: CREATININE 1.9 mg/dL (0.6-1.3); POTASSIUM 3.7 mmol/L (3.5-5.1); TOTAL BILIRUBIN 0.5 mg/dL (<0.1-1.0); TOTAL PROTEIN 4.5 g/dL (6.4-8.2)
[2021-06-25 16:34] LABS: HEMATOCRIT 22.2 % (37.0-47.0); MCHC 31.2 g/dL (28.0-37.0); MCV 102.7 fL (80.0-100.0); MPV 11.3 fl. (7.2-11.1); RBC 2.16 mil/uL (4.20-5.00); RDW-CV 17.4 % (10.5-14.5); WBC 18.4 thou/uL (4.0-11.0)
[2021-06-25 16:37] LABS: CALCIUM 7.9 mg/dL (8.5-10.1); CREATININE 2.2 mg/dL (0.6-1.3); POTASSIUM 4.2 mmol/L (3.5-5.1)
[2021-06-25 16:39] LABS: HEMOGLOBIN 6.9 gm/dL (12.0-15.0)
[2021-06-26] VITALS (58 sets, daily range): BP systolic 81–141; BP diastolic 41–83
[2021-06-26 02:06] LABS: URINE CREATININE 36.4 mg/dL (Not Estab.)
[2021-06-26 05:35] LABS: HEMATOCRIT 27.8 % (37.0-47.0); MCH 31.8 pg (26.0-34.0); MCHC 32.4 g/dL (28.0-37.0); MCV 97.9 fL (80.0-100.0); MPV 11.4 fl. (7.2-11.1); NUCLEATED RBCS 0 /100WBC; PLATELET COUNT* 198 thou/uL (150-400); RBC 2.84 mil/uL (4.20-5.00); RDW-CV 17.1 % (10.5-14.5); WBC 23.9 thou/uL (4.0-11.0)
[2021-06-26 05:50] LABS: CALCIUM 7.7 mg/dL (8.5-10.1); CREATININE 2.2 mg/dL (0.6-1.3); MAGNESIUM 2.1 mg/dL (1.8-2.4); POTASSIUM 3.7 mmol/L (3.5-5.1)
[2021-06-26 06:05] LABS: PHOSPHORUS* 6.1 mg/dL (2.5-4.9)
[2021-06-26 07:26] LABS: ABSOLUTE LYMPHOCYTES 1.2 thou/uL (0.8-5.3); ABSOLUTE MONOCYTES 0.7 thou/uL (0.0-1.2)
[2021-06-26 07:29] LABS: ANISOCYTOSIS 1+; PLATELET ESTIMATE ADEQUATE
[2021-06-26 07:30] LABS: POLYCHROMASIA 1+
[2021-06-26 11:30] LABS: BE -1.8 mmol/L (-2 to +3); PCO2 31.1 mmHg (35.0-45.0); PO2 65.9 mmHg (75.0-100.0); pH 7.454 (7.340-7.450)
--- NOTE | 2021-06-26 17:09 | TEE ---
[place] [address] TRANSESOPHAGEAL ECHOCARDIOGRAM Name: RENNERHECTOR Room: [address] IN [facility]#: [id number] Admission: 06/12/21 Attend Phys: Chris Joy Discharge: Date of : 61 Date of Service: 06/26/21 1709 Report #: [id number] THIS REPORT FOR: cc: Quinn Acosta Russell J. DO Liston, Michael J. MD [facility] ~ APPROVED REPORT Study performed: 06/26/2021 14:16:30 EXAM: Transesophageal Echocardiogram Patient Location: In-Patient Room #: 004 Status: routine BSA: 5.21 HR: 81 bpm BP: 98/64 mmHg Rhythm: Atrial Fibrillation Other Information Study Quality: Good Indications Atrial Fibrillation Echo Enhancing Agent Indication: Rule out Shunt Agent(s) / Amount(s) Used: Agitated Saline 10 cc Procedure After obtaining informed consent, patient underwent transesophageal echo in the Bedside. Type of Sedation : General Anesthesia Sedation was administered by ICU staff, patient on a vent. Sedation start time: Case end Time: 1425 Sedation was achieved intravenously with: Propofol () Transesophageal probe was inserted and advanced into esophagus without difficulty by Akbar Faust MD, FACC. Echo enhancement indication: R/O Septal defect. Echo enhancement agent administered: Agitated Saline The KB was performed without complications. Synchronized Cardioversion acheived with 300 Joules after 1 attempt([place] [address] TRANSESOPHAGEAL ECHOCARDIOGRAM Name: HECTOR RENNER Room: [address] IN ..#: [id number] Admission: 06/12/21 Attend Phys: Chris Joy Discharge: Date of : 61 Date of Service: 06/26/21 1709 Report #: [id number] Rhythm following Synchronized Cardioversion: Normal Sinus Rhythm Throughout the procedure, the blood pressure, pulse oximetry, cardiac rhythm, and rate were monitored. The patient tolerated the procedure without adverse effects. Recovery from conscious sedation was uneventful and vital signs were stable. Left Ventricle The left ventricle is normal size. There is normal LV segmental wall motion. Moderate concentric left ventricular hypertrophy. Left ventricular systolic function is normal. LVEF is 65-70%. Right Ventricle The right ventricle is normal size. The right ventricular systolic function is normal. Atria Left atrium is dilated. No thrombus is visualized in the left atrium or appendage. The interatrial septum is intact with no evidence for an atrial septal defect. Right atrium is dilated. Aortic Valve Mild aortic valve sclerosis. No aortic regurgitation is present. There is no aortic valvular stenosis. Mitral Valve The mitral valve is normal in structure. Mild to moderate mitral regurgitation. No evidence of mitral valve stenosis. Tricuspid Valve The tricuspid valve is normal in structure. Mild tricuspid regurgitation. Pulmonic Valve The pulmonary valve is normal in structure. There is no pulmonic valvular regurgitation. Great Vessels The aortic root is normal in size. Pericardium There is no pericardial effusion. <Conclusion> The left ventricle is normal size. Moderate concentric [place] [address] TRANSESOPHAGEAL ECHOCARDIOGRAM Name: JUDHECTOR Room: [address] IN [facility]#: [id number] Admission: 06/12/21 Attend Phys: Chris Joy Discharge: Date of : 61 Date of Service: 06/26/211708 Report #: [id number] Left ventricular systolic function is normal. LVEF is 65-70%. There is normal LV segmental wall motion. The interatrial septum is intact with no evidence for an atrial septal defect. Left atrium is dilated. No thrombus is visualized in the left atrium or appendage. Mild to moderate mitral regurgitation. Mild tricuspid regurgitation. <ELECTRONICALLY SIGNED> By: Akbar Faust MD, FAC 06/26/211708 08 08 Akabr Faust MD, FACC /INF
[2021-06-26 18:17] LABS: ABSOLUTE LYMPHOCYTES 0.6 thou/uL (0.8-5.3); ABSOLUTE MONOCYTES 0.3 thou/uL (0.0-1.2); ABSOLUTE NEUTROPHILS 26.6 thou/uL (1.6-8.1); BASOPHILS 0.1 %; HEMATOCRIT 27.6 % (37.0-47.0); HEMOGLOBIN 8.9 gm/dL (12.0-15.0); LYMPHOCYTES 2.3 %; MCH 31.5 pg (26.0-34.0); MCV 98.3 fL (80.0-100.0); MONOCYTES 1.2 %; MPV 11.7 fl. (7.2-11.1); NUCLEATED RBCS 0 /100WBC; PLATELET COUNT* 228 thou/uL (150-400); POLYS 96.4 %; RBC 2.81 mil/uL (4.20-5.00); RDW-CV 17.9 % (10.5-14.5); WBC 27.6 thou/uL (4.0-11.0)
[2021-06-26 18:29] LABS: PROTIME 10.7 Seconds (9.20-11.50)
[2021-06-26 18:36] LABS: CALCIUM 7.7 mg/dL (8.5-10.1); CREATININE 2.2 mg/dL (0.6-1.3); MAGNESIUM 2.1 mg/dL (1.8-2.4); POTASSIUM 4.3 mmol/L (3.5-5.1)
[2021-06-27] VITALS (93 sets, daily range): BP systolic 91–134; BP diastolic 40–87
[2021-06-27 01:19] LABS: ABSOLUTE BASOPHILS 0.2 thou/uL (0.0-0.2); ABSOLUTE LYMPHOCYTES 0.9 thou/uL (0.8-5.3); ABSOLUTE MONOCYTES 0.7 thou/uL (0.0-1.2); ABSOLUTE NEUTROPHILS 19.7 thou/uL (1.6-8.1); BASOPHILS 1.1 %; HEMATOCRIT 24.9 % (37.0-47.0); LYMPHOCYTES 4.2 %; MCH 32.4 pg (26.0-34.0); MCHC 32.4 g/dL (28.0-37.0); MCV 100.2 fL (80.0-100.0); MONOCYTES 3.3 %; MPV 12.4 fl. (7.2-11.1); NUCLEATED RBCS 0 /100WBC; PLATELET COUNT* 195 thou/uL (150-400); POLYS 91.4 %; RBC 2.48 mil/uL (4.20-5.00); WBC 21.6 thou/uL (4.0-11.0)
[2021-06-27 01:37] LABS: ALBUMIN 1.8 g/dL (3.4-5.0); CALCIUM 6.4 mg/dL (8.5-10.1); CREATININE 1.9 mg/dL (0.6-1.3); MAGNESIUM 1.8 mg/dL (1.8-2.4); PHOSPHORUS* 5.3 mg/dL (2.5-4.9); POTASSIUM 3.9 mmol/L (3.5-5.1); TOTAL BILIRUBIN 0.6 mg/dL (<0.1-1.0); TOTAL PROTEIN 4.6 g/dL (6.4-8.2)
--- NOTE | 2021-06-27 07:35 | CARD ---
[address] [address] CARDIAC CATH REPORT Name: HECTOR RENNER Room: [address] IN .R.#: [id number] Admission: 06/12/21 Attend Phys: Clifton Victoria Discharge: Date of : 61 Report #: [id number] THIS REPORT FOR: cc: Quinn Acosta Russell J. DO Liston, Michael J. MD [facility] ~ DATE OF SERVICE: 06/26/2021 CARDIAC PROCEDURE INDICATION: Persistent atrial fibrillation. PROCEDURE: Transesophageal-guided cardioversion. DESCRIPTION OF PROCEDURE: After informed consent was obtained from the family. The patient underwent transesophageal echocardiogram that will be reported separately. FINDINGS: No evidence of intracardiac thrombus. The patient was cardioverted from atrial fibrillation to sinus rhythm with a single biphasic shock of 300 joules. The patient tolerated the procedure well and without complication. IMPRESSION: 1. Persistent atrial fibrillation. 2. Successful transesophageal-guided cardioversion. <ELECTRONICALLY SIGNED> By: Akbar Faust MD, FACC 06/27/21 0735 1617 1938[facility] Fa[facility] MD, FACC /nt
[2021-06-27 13:36] LABS: ABSOLUTE BASOPHILS 0.2 thou/uL (0.0-0.2); ABSOLUTE LYMPHOCYTES 0.4 thou/uL (0.8-5.3); ABSOLUTE MONOCYTES 0.1 thou/uL (0.0-1.2); ABSOLUTE NEUTROPHILS 20.2 thou/uL (1.6-8.1); BASOPHILS 1.2 %; HEMATOCRIT 26.5 % (37.0-47.0); HEMOGLOBIN 8.3 gm/dL (12.0-15.0); LYMPHOCYTES 1.8 %; MCH 31.8 pg (26.0-34.0); MCHC 31.4 g/dL (28.0-37.0); MCV 101.5 fL (80.0-100.0); MONOCYTES 0.6 %; MPV 11.5 fl. (7.2-11.1); NUCLEATED RBCS 0 /100WBC; PLATELET COUNT* 183 thou/uL (150-400); POLYS 96.4 %; RBC 2.61 mil/uL (4.20-5.00); RDW-CV 18.4 % (10.5-14.5)
[2021-06-27 13:52] LABS: ALBUMIN 2.1 g/dL (3.4-5.0); CALCIUM 7.7 mg/dL (8.5-10.1); CREATININE 1.8 mg/dL (0.6-1.3); MAGNESIUM 2.1 mg/dL (1.8-2.4); POTASSIUM 4.5 mmol/L (3.5-5.1); TOTAL BILIRUBIN 0.7 mg/dL (<0.1-1.0); TOTAL PROTEIN 5.2 g/dL (6.4-8.2)
[2021-06-28] VITALS (36 sets, daily range): BP systolic 83–120; BP diastolic 33–75
[2021-06-28 09:43] LABS: ABSOLUTE LYMPHOCYTES 1.3 thou/uL (0.8-5.3); ABSOLUTE MONOCYTES 0.4 thou/uL (0.0-1.2); ABSOLUTE NEUTROPHILS 18.3 thou/uL (1.6-8.1); BASOPHILS 0.1 %; EOSINOPHILS 0.1 %; HEMATOCRIT 24.6 % (37.0-47.0); HEMOGLOBIN 7.6 gm/dL (12.0-15.0); LYMPHOCYTES 6.3 %; MCH 31.5 pg (26.0-34.0); MCHC 30.9 g/dL (28.0-37.0); MCV 101.9 fL (80.0-100.0); MONOCYTES 2.2 %; MPV 12.4 fl. (7.2-11.1); NUCLEATED RBCS 0 /100WBC; PLATELET COUNT* 163 thou/uL (150-400); POLYS 91.3 %; RBC 2.41 mil/uL (4.20-5.00); RDW-CV 18.8 % (10.5-14.5); WBC 20.1 thou/uL (4.0-11.0)
[2021-06-28 09:46] LABS: CALCIUM 7.9 mg/dL (8.5-10.1); CREATININE 1.7 mg/dL (0.6-1.3); POTASSIUM 3.8 mmol/L (3.5-5.1)
[2021-06-28 14:42] LABS: BE -4.7 mmol/L (-2 to +3); pH 7.381 (7.340-7.450)
[2021-06-28 17:05] LABS: CALCIUM 7.8 mg/dL (8.5-10.1); CREATININE 1.7 mg/dL (0.6-1.3); POTASSIUM 4.3 mmol/L (3.5-5.1)
[2021-06-29] VITALS (142 sets, daily range): BP systolic 91–130; BP diastolic 27–84
[2021-06-29 03:53] LABS: HEMOGLOBIN 7.7 gm/dL (12.0-15.0); MPV 11.8 fl. (7.2-11.1); NUCLEATED RBCS 0 /100WBC
[2021-06-29 03:54] LABS: ABSOLUTE LYMPHOCYTES 0.9 thou/uL (0.8-5.3); ABSOLUTE MONOCYTES 0.5 thou/uL (0.0-1.2); ABSOLUTE NEUTROPHILS 23.2 thou/uL (1.6-8.1); BASOPHILS 0.2 %; EOSINOPHILS 0.2 %; HEMATOCRIT 24.2 % (37.0-47.0); LYMPHOCYTES 3.7 %; MCH 31.6 pg (26.0-34.0); MCHC 31.6 g/dL (28.0-37.0); MCV 99.8 fL (80.0-100.0); PLATELET COUNT* 182 thou/uL (150-400); POLYS 93.9 %; RBC 2.42 mil/uL (4.20-5.00); RDW-CV 18.5 % (10.5-14.5); WBC 24.8 thou/uL (4.0-11.0)
[2021-06-29 04:11] LABS: CALCIUM 7.7 mg/dL (8.5-10.1); CREATININE 1.5 mg/dL (0.6-1.3); POTASSIUM 3.8 mmol/L (3.5-5.1)
[2021-06-29 04:49] LABS: MAGNESIUM 1.9 mg/dL (1.8-2.4); PHOSPHORUS* 4.2 mg/dL (2.5-4.9)
[2021-06-29 12:37] LABS: BE -2.8 mmol/L (-2 to +3); PCO2 33.5 mmHg (35.0-45.0); PO2 78.9 mmHg (75.0-100.0); pH 7.419 (7.340-7.450)
[2021-06-29 15:37] LABS: CREATININE 1.3 mg/dL (0.6-1.3); MAGNESIUM 2.3 mg/dL (1.8-2.4); POTASSIUM 4.2 mmol/L (3.5-5.1)
[2021-06-29 18:52] LABS: BE -2.7 mmol/L (-2 to +3); PCO2 31.7 mmHg (35.0-45.0); pH 7.436 (7.340-7.450)
[2021-06-29 18:56] LABS: PO2 196.7 mmHg (75.0-100.0)
[2021-06-30] VITALS (127 sets, daily range): BP systolic 74–169; BP diastolic 32–79
[2021-06-30 05:00] LABS: HEMATOCRIT 24.6 % (37.0-47.0); HEMOGLOBIN 7.9 gm/dL (12.0-15.0); MCH 31.8 pg (26.0-34.0); MCHC 32.1 g/dL (28.0-37.0); MCV 99.1 fL (80.0-100.0); NUCLEATED RBCS 0 /100WBC; PLATELET COUNT* 194 thou/uL (150-400); RBC 2.48 mil/uL (4.20-5.00); RDW-CV 17.8 % (10.5-14.5)
[2021-06-30 05:28] LABS: PHOSPHORUS* 3.9 mg/dL (2.5-4.9)
[2021-06-30 05:30] LABS: ALBUMIN 2.3 g/dL (3.4-5.0); CALCIUM 7.8 mg/dL (8.5-10.1); CREATININE 1.3 mg/dL (0.6-1.3); POTASSIUM 3.8 mmol/L (3.5-5.1); TOTAL BILIRUBIN 0.8 mg/dL (<0.1-1.0); TOTAL PROTEIN 5.1 g/dL (6.4-8.2)
[2021-06-30 07:16] LABS: ABSOLUTE LYMPHOCYTES 0.8 thou/uL (0.8-5.3); ABSOLUTE MONOCYTES 0.5 thou/uL (0.0-1.2); ABSOLUTE NEUTROPHILS 23.8 thou/uL (1.6-8.1); PLATELET ESTIMATE ADEQUATE
--- NOTE | 2021-06-30 11:01 | EKG ---
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1965 Requested By: Tia Lamb Order Number: [id number] Reading MD: Josiah Cee Measurements Intervals [place] Rate: 105 P: [place]: QRS: 5 QRSD: 108 T: 167 QT: 359 QTc: 475 Interpretive Statements Atrial fibrillation LVH with secondary repolarization abnormality Baseline wander in lead(s) V2 Compared to ECG 06/19/2021 08:35:46 Left ventricular hypertrophy now present Possible ischemia no longer present Prolonged QT interval no longer present Electronically Signed On 06-30-2021 11:01:25 COLLARETTE SEPARATOR by Josiah Cee [email or web address] <ELECTRONICALLY SIGNED> By: Josiah Cee MD, FACC 06/30/21 1101 190 1904 Josiah Cee MD, FAC /EPI
[2021-07-01] VITALS (29 sets, daily range): BP systolic 118–162; BP diastolic 48–99
[2021-07-01 04:54] LABS: HEMATOCRIT 23.8 % (37.0-47.0); HEMOGLOBIN 7.6 gm/dL (12.0-15.0); MCH 31.9 pg (26.0-34.0); MCHC 32.1 g/dL (28.0-37.0); MCV 99.4 fL (80.0-100.0); MPV 12.1 fl. (7.2-11.1); RBC 2.39 mil/uL (4.20-5.00); RDW-CV 18.1 % (10.5-14.5); WBC 17.7 thou/uL (4.0-11.0)
[2021-07-01 05:13] LABS: ALBUMIN 2.4 g/dL (3.4-5.0); CREATININE 1.2 mg/dL (0.6-1.3); POTASSIUM 3.7 mmol/L (3.5-5.1); TOTAL BILIRUBIN 0.7 mg/dL (<0.1-1.0); TOTAL PROTEIN 5.3 g/dL (6.4-8.2)
[2021-07-02] VITALS (24 sets, daily range): BP systolic 87–144; BP diastolic 52–88
[2021-07-02 10:06] LABS: CALCIUM 7.7 mg/dL (8.5-10.1); CREATININE 1.5 mg/dL (0.6-1.3); POTASSIUM 3.6 mmol/L (3.5-5.1)
[2021-07-02 17:22] LABS: CALCIUM 8.1 mg/dL (8.5-10.1); CREATININE 1.5 mg/dL (0.6-1.3); POTASSIUM 4.4 mmol/L (3.5-5.1)
[2021-07-03] VITALS (59 sets, daily range): BP systolic 64–155; BP diastolic 30–80
[2021-07-03 05:16] LABS: HEMATOCRIT 22.1 % (37.0-47.0); MCH 31.8 pg (26.0-34.0); MCHC 31.1 g/dL (28.0-37.0); MCV 102.5 fL (80.0-100.0); MPV 11.7 fl. (7.2-11.1); NUCLEATED RBCS 0 /100WBC; PLATELET COUNT* 163 thou/uL (150-400); RBC 2.16 mil/uL (4.20-5.00); RDW-CV 19.1 % (10.5-14.5); WBC 11.5 thou/uL (4.0-11.0)
[2021-07-03 05:31] LABS: HEMOGLOBIN 6.9 gm/dL (12.0-15.0)
[2021-07-03 05:52] LABS: ALBUMIN 2.3 g/dL (3.4-5.0); CALCIUM 7.7 mg/dL (8.5-10.1); CREATININE 1.5 mg/dL (0.6-1.3); MAGNESIUM 1.8 mg/dL (1.8-2.4); TOTAL BILIRUBIN 0.6 mg/dL (<0.1-1.0); TOTAL PROTEIN 4.8 g/dL (6.4-8.2)
[2021-07-03 07:48] LABS: ABSOLUTE LYMPHOCYTES 0.9 thou/uL (0.8-5.3); ABSOLUTE MONOCYTES 0.1 thou/uL (0.0-1.2); ABSOLUTE NEUTROPHILS 10.5 thou/uL (1.6-8.1)
[2021-07-03 07:50] LABS: ANISOCYTOSIS 1+; HYPOCHROMASIA 1+; PLATELET ESTIMATE ADEQUATE
[2021-07-03 18:54] LABS: ABSOLUTE EOSINOPHILS 0.1 thou/uL (0.0-0.7); ABSOLUTE LYMPHOCYTES 0.6 thou/uL (0.8-5.3); ABSOLUTE MONOCYTES 0.2 thou/uL (0.0-1.2); ABSOLUTE NEUTROPHILS 8.6 thou/uL (1.6-8.1); BASOPHILS 0.2 %; EOSINOPHILS 1.3 %; HEMATOCRIT 26.8 % (37.0-47.0); HEMOGLOBIN 8.8 gm/dL (12.0-15.0); LYMPHOCYTES 5.9 %; MCH 32.2 pg (26.0-34.0); MCV 97.7 fL (80.0-100.0); MONOCYTES 1.6 %; MPV 11.3 fl. (7.2-11.1); NUCLEATED RBCS 0 /100WBC; PLATELET COUNT* 140 thou/uL (150-400); RBC 2.74 mil/uL (4.20-5.00); RDW-CV 18.2 % (10.5-14.5); WBC 9.5 thou/uL (4.0-11.0)
[2021-07-03 18:57] LABS: CALCIUM 7.5 mg/dL (8.5-10.1); CREATININE 1.2 mg/dL (0.6-1.3); MAGNESIUM 1.7 mg/dL (1.8-2.4); POTASSIUM 3.6 mmol/L (3.5-5.1)
[2021-07-04] VITALS (36 sets, daily range): BP systolic 103–189; BP diastolic 57–114
[2021-07-04 04:33] LABS: ALBUMIN 2.3 g/dL (3.4-5.0); CALCIUM 7.5 mg/dL (8.5-10.1); CREATININE 1.2 mg/dL (0.6-1.3); MAGNESIUM 2.3 mg/dL (1.8-2.4); POTASSIUM 3.8 mmol/L (3.5-5.1); TOTAL BILIRUBIN 0.9 mg/dL (<0.1-1.0); TOTAL PROTEIN 5.1 g/dL (6.4-8.2)
[2021-07-04 05:01] LABS: ABSOLUTE EOSINOPHILS 0.1 thou/uL (0.0-0.7); ABSOLUTE LYMPHOCYTES 0.6 thou/uL (0.8-5.3); ABSOLUTE MONOCYTES 0.1 thou/uL (0.0-1.2); ABSOLUTE NEUTROPHILS 7.6 thou/uL (1.6-8.1); BASOPHILS 0.2 %; EOSINOPHILS 1.5 %; HEMATOCRIT 26.5 % (37.0-47.0); HEMOGLOBIN 8.8 gm/dL (12.0-15.0); LYMPHOCYTES 7.4 %; MCH 32.2 pg (26.0-34.0); MCHC 33.1 g/dL (28.0-37.0); MCV 97.2 fL (80.0-100.0); MONOCYTES 1.4 %; MPV 11.4 fl. (7.2-11.1); NUCLEATED RBCS 0 /100WBC; PLATELET COUNT* 127 thou/uL (150-400); POLYS 89.5 %; RBC 2.72 mil/uL (4.20-5.00); RDW-CV 18.1 % (10.5-14.5); WBC 8.4 thou/uL (4.0-11.0)
[2021-07-04 16:01] LABS: BE -4.4 mmol/L (-2 to +3); pH 7.387 (7.340-7.450)
[2021-07-04 16:44] LABS: ABSOLUTE BASOPHILS 0.1 thou/uL (0.0-0.2); ABSOLUTE LYMPHOCYTES 0.1 thou/uL (0.8-5.3); ABSOLUTE MONOCYTES 0.1 thou/uL (0.0-1.2); ABSOLUTE NEUTROPHILS 8.9 thou/uL (1.6-8.1); EOSINOPHILS 0.1 %; HEMATOCRIT 30.3 % (37.0-47.0); HEMOGLOBIN 9.9 gm/dL (12.0-15.0); LYMPHOCYTES 1.4 %; MCH 32.1 pg (26.0-34.0); MCHC 32.6 g/dL (28.0-37.0); MCV 98.3 fL (80.0-100.0); MONOCYTES 0.6 %; MPV 11.1 fl. (7.2-11.1); NUCLEATED RBCS 0 /100WBC; PLATELET COUNT* 155 thou/uL (150-400); POLYS 96.9 %; RBC 3.08 mil/uL (4.20-5.00); WBC 9.2 thou/uL (4.0-11.0)
[2021-07-04 16:51] LABS: CREATININE 1.2 mg/dL (0.6-1.3); MAGNESIUM 2.1 mg/dL (1.8-2.4)
[2021-07-04 16:52] LABS: POTASSIUM 5.4 mmol/L (3.5-5.1)
[2021-07-05] VITALS: BP 132/57; BP 158/71
[2021-07-05 04:00] VITALS: BP 159/72
[2021-07-05 05:19] LABS: HEMATOCRIT 23.7 % (37.0-47.0); MCH 32.2 pg (26.0-34.0); MCHC 32.4 g/dL (28.0-37.0); MCV 99.4 fL (80.0-100.0); MPV 11.4 fl. (7.2-11.1); RBC 2.39 mil/uL (4.20-5.00)
[2021-07-05 05:37] LABS: ALBUMIN 2.2 g/dL (3.4-5.0); CALCIUM 7.6 mg/dL (8.5-10.1); CREATININE 1.2 mg/dL (0.6-1.3); MAGNESIUM 1.9 mg/dL (1.8-2.4); TOTAL BILIRUBIN 0.9 mg/dL (<0.1-1.0)
[2021-07-05 05:41] LABS: POTASSIUM 3.9 mmol/L (3.5-5.1)
[2021-07-05 05:53] LABS: HEMOGLOBIN 7.7 gm/dL (12.0-15.0)
[2021-07-05 08:00] VITALS: BP 140/65
[2021-07-05 12:00] VITALS: BP 150/66
[2021-07-05 16:00] VITALS: BP 146/70
[2021-07-05 19:29] LABS: CALCIUM 7.9 mg/dL (8.5-10.1); CREATININE 1.3 mg/dL (0.6-1.3); POTASSIUM 4.5 mmol/L (3.5-5.1)
[2021-07-05 20:00] VITALS: BP 118/58
[2021-07-06] VITALS: BP 120/53
[2021-07-06 04:00] VITALS: BP 128/60
[2021-07-06 05:36] LABS: ABSOLUTE LYMPHOCYTES 0.5 thou/uL (0.8-5.3); ABSOLUTE MONOCYTES 0.2 thou/uL (0.0-1.2); ABSOLUTE NEUTROPHILS 4.3 thou/uL (1.6-8.1); BASOPHILS 0.2 %; EOSINOPHILS 0.4 %; HEMATOCRIT 23.6 % (37.0-47.0); HEMOGLOBIN 7.7 gm/dL (12.0-15.0); LYMPHOCYTES 9.2 %; MCH 32.5 pg (26.0-34.0); MCHC 32.8 g/dL (28.0-37.0); MCV 99.2 fL (80.0-100.0); MONOCYTES 3.5 %; MPV 11.3 fl. (7.2-11.1); NUCLEATED RBCS 0 /100WBC; PLATELET COUNT* 101 thou/uL (150-400); POLYS 86.7 %; RBC 2.38 mil/uL (4.20-5.00); RDW-CV 17.4 % (10.5-14.5)
[2021-07-06 06:09] LABS: ALBUMIN 2.2 g/dL (3.4-5.0); CALCIUM 7.7 mg/dL (8.5-10.1); CREATININE 1.3 mg/dL (0.6-1.3); MAGNESIUM 2.1 mg/dL (1.8-2.4); POTASSIUM 4.1 mmol/L (3.5-5.1); TOTAL BILIRUBIN 0.7 mg/dL (<0.1-1.0)
[2021-07-06 08:00] VITALS: BP 110/55
[2021-07-06 12:00] VITALS: BP 105/44
[2021-07-06 16:42] VITALS: BP 131/62
[2021-07-06 20:00] VITALS: BP 115/54
[2021-07-07] VITALS: BP 114/57
[2021-07-07 04:00] VITALS: BP 135/61
[2021-07-07 07:26] LABS: HEMATOCRIT 25.1 % (37.0-47.0); HEMOGLOBIN 8.1 gm/dL (12.0-15.0); MCHC 32.3 g/dL (28.0-37.0); MPV 10.9 fl. (7.2-11.1); NUCLEATED RBCS 0 /100WBC; PLATELET COUNT* 97 thou/uL (150-400); RBC 2.54 mil/uL (4.20-5.00); RDW-CV 17.3 % (10.5-14.5); WBC 4.7 thou/uL (4.0-11.0)
[2021-07-07 07:34] LABS: ABSOLUTE EOSINOPHILS 0.2 thou/uL (0.0-0.7); ABSOLUTE LYMPHOCYTES 0.8 thou/uL (0.8-5.3); ABSOLUTE MONOCYTES 0.3 thou/uL (0.0-1.2); ABSOLUTE NEUTROPHILS 3.3 thou/uL (1.6-8.1); PLATELET ESTIMATE ADEQUATE
[2021-07-07 07:53] LABS: ALBUMIN 2.4 g/dL (3.4-5.0); CREATININE 1.1 mg/dL (0.6-1.3); MAGNESIUM 1.6 mg/dL (1.8-2.4); TOTAL BILIRUBIN 0.8 mg/dL (<0.1-1.0); TOTAL PROTEIN 5.3 g/dL (6.4-8.2)
[2021-07-07 08:00] VITALS: BP 113/49
[2021-07-07 11:30] VITALS: BP 143/63
[2021-07-07 16:00] VITALS: BP 119/59
[2021-07-07 20:00] VITALS: BP 118/65
[2021-07-08] VITALS: BP 99/47
[2021-07-08 04:00] VITALS: BP 114/55
[2021-07-08 07:14] LABS: HEMATOCRIT 24.6 % (37.0-47.0); HEMOGLOBIN 8.1 gm/dL (12.0-15.0); MCH 32.2 pg (26.0-34.0); MCHC 32.9 g/dL (28.0-37.0); MCV 97.7 fL (80.0-100.0); MPV 11.1 fl. (7.2-11.1); RBC 2.52 mil/uL (4.20-5.00); RDW-CV 17.2 % (10.5-14.5); WBC 4.3 thou/uL (4.0-11.0)
[2021-07-08 07:26] LABS: ALBUMIN 2.3 g/dL (3.4-5.0); CALCIUM 7.7 mg/dL (8.5-10.1); MAGNESIUM 1.6 mg/dL (1.8-2.4); TOTAL BILIRUBIN 0.7 mg/dL (<0.1-1.0); TOTAL PROTEIN 5.2 g/dL (6.4-8.2)
[2021-07-08 08:00] VITALS: BP 119/60
--- NOTE | 2021-07-08 08:04 | CON ---
[address] [address] CONSULTATION Name: HECTOR RENNER Room: [address] IN M.R.#: [id number] Admission: 06/12/21 Attend Phys: Clifton Victoria Discharge: Date of : 61 Report #: [id number] THIS REPORT FOR: cc: Quinn Acosta Russell J. DO Biggs, F. Douglas MD [facility] ~ DATE OF CONSULTATION: 07/07/2021 HISTORY OF PRESENT ILLNESS: The patient today appears to be in normal sinus rhythm on her monitor. She feels fairly well, but remains quite fatigued. She is not having much shortness of breath. She is not nearly at her baseline she says. PHYSICAL EXAMINATION: VITAL SIGNS: Her pulse was 69 and regular, blood pressure was 135/61, respirations 20 and regular, temperature 36.2, O2 sat was 93%. NECK: There was no jugular venous distention or hepatojugular reflux. Thyroid is not enlarged. LUNGS: Clear to auscultation and percussion. HEART: Revealed normal first and second heart sound. There is soft S4. There is no S3. There was a 1-2/6 systolic ejection murmur heard at the apex. The rhythm is regular. Rate was about 70. PMI is nondisplaced. ABDOMEN: Soft, flat, nontender, no palpable masses, no organomegaly. EXTREMITIES: Reveal no cyanosis, clubbing or edema. NEUROLOGIC: The patient mentated normally, talked normally, moved all extremities normally. IMPRESSION: 1. Acute diastolic heart failure, now improved. 2. Paroxysmal atrial fibrillation, now in normal sinus rhythm. 3. Essential hypertension. 4. Mild hypertensive obstructive cardiomyopathy. 5. Coronary artery disease. 6. Pneumothorax. 7. Acute renal failure that is resolving. 8. Status post coronary stent. RECOMMENDATIONS: Continue her current therapy. I would not give her any diuretics today. I would continue her amiodarone. I will be careful not to over diurese her given her renal function issues. <ELECTRONICALLY SIGNED> By: Hillary High MD, FACC 07/08/21 0804 1059 [id number]. Hugo High MD, FACC /nt
[2021-07-08 11:30] VITALS: BP 151/80
[2021-07-08 16:00] VITALS: BP 130/68
[2021-07-09 00:15] VITALS: BP 117/52
[2021-07-09 04:30] VITALS: BP 110/48
[2021-07-09 04:45] LABS: HEMATOCRIT 24.7 % (37.0-47.0); HEMOGLOBIN 8.1 gm/dL (12.0-15.0); MCHC 32.9 g/dL (28.0-37.0); MCV 97.2 fL (80.0-100.0); MPV 10.9 fl. (7.2-11.1); RBC 2.55 mil/uL (4.20-5.00); RDW-CV 16.7 % (10.5-14.5); WBC 4.6 thou/uL (4.0-11.0)
[2021-07-09 04:58] LABS: ALBUMIN 2.3 g/dL (3.4-5.0); CALCIUM 7.8 mg/dL (8.5-10.1); CREATININE 0.9 mg/dL (0.6-1.3); MAGNESIUM 1.5 mg/dL (1.8-2.4); POTASSIUM 3.2 mmol/L (3.5-5.1); TOTAL BILIRUBIN 0.7 mg/dL (<0.1-1.0); TOTAL PROTEIN 5.4 g/dL (6.4-8.2)
[2021-07-09 11:55] VITALS: BP 143/77
[2021-07-09 15:50] VITALS: BP 113/54
[2021-07-10] VITALS: BP 125/47
[2021-07-10 04:00] VITALS: BP 125/59
[2021-07-10 05:27] LABS: HEMATOCRIT 25.2 % (37.0-47.0); HEMOGLOBIN 8.4 gm/dL (12.0-15.0); MCH 32.1 pg (26.0-34.0); MCHC 33.1 g/dL (28.0-37.0); MCV 96.7 fL (80.0-100.0); MPV 10.9 fl. (7.2-11.1); RBC 2.61 mil/uL (4.20-5.00); RDW-CV 16.6 % (10.5-14.5); WBC 5.1 thou/uL (4.0-11.0)
[2021-07-10 06:01] LABS: ALBUMIN 2.4 g/dL (3.4-5.0); CALCIUM 7.9 mg/dL (8.5-10.1); CREATININE 0.8 mg/dL (0.6-1.3); MAGNESIUM 1.6 mg/dL (1.8-2.4); POTASSIUM 3.5 mmol/L (3.5-5.1); TOTAL BILIRUBIN 0.8 mg/dL (<0.1-1.0); TOTAL PROTEIN 5.6 g/dL (6.4-8.2)
[2021-07-10 08:00] VITALS: BP 122/56
--- NOTE | 2021-07-10 09:02 | CON ---
[address] [address] CONSULTATION Name: HECTOR RENNER Room: [facility] M.R.#: [id number] Admission: 06/12/21 Attend Phys: Clifton Victoria Discharge: Date of : 61 Report #: [id number] THIS REPORT FOR: cc: Quinn Acosta Russell J. DO Biggs, F. Douglas MD [facility] ~ DATE OF CONSULTATION: 07/08/2021 [facility] FOLLOWUP VISIT HISTORY OF PRESENT ILLNESS: Today, the patient feels fairly well. She denies shortness of breath. She does not have any chest pain. She is not having dyspnea on exertion, orthopnea or PND. Overall, she seems to be improved. She is in normal sinus rhythm. She still has feeding tube in, but she is getting p.o. food, but not a normal diet yet. Hopefully, the feeding tube will come out soon. PHYSICAL EXAMINATION: NECK: There is no jugular venous distention. LUNGS: Clear to auscultation and percussion. HEART: Revealed normal first and second heart sound. There is a soft 1/6 systolic murmur. There are no other murmurs, rubs, thrills, heaves or gallops. PMI is not displaced. IMPRESSION: 1. Paroxysmal atrial fibrillation. 2. Coronary artery disease. 3. Acute diastolic heart failure that seems to have resolved. 4. Acute renal failure that is improving. 5. Interventricular conduction defect. 6. Hypertension. 7. Mild hypertensive obstructive cardiomyopathy. 8. Status post pneumothorax. 9. Status post coronary stent. RECOMMENDATIONS: Continue her current medications. Continue her current medical regimen. <ELECTRONICALLY SIGNED> By: Hillary High MD, [facility] 07/10/21 [id number]. Hugo High MD, FACC /nt
[2021-07-10 12:46] VITALS: BP 118/66
[2021-07-10 13:08] LABS: IgA 200 mg/dL (87-352); IgG 645 mg/dL (586-1602); IgM 115 mg/dL (26-217)
[2021-07-10 16:48] VITALS: BP 115/59
[2021-07-10 21:01] VITALS: BP 112/51
[2021-07-11] VITALS: BP 109/54
[2021-07-11 08:00] VITALS: BP 112/58
[2021-07-11] MEDS ORDERED: MUPIROCIN22 GM TOP (09:50)
[2021-07-11] MEDS ORDERED: BROVANA15 MCG/2 M INH (09:50)
[2021-07-11] MEDS ORDERED: OYSTER SHELL C500 MG PO (09:50)
[2021-07-11] MEDS ORDERED: NEXIUM40 MG PO (09:50)
[2021-07-11] MEDS ORDERED: PULMICORT0.5 MG/2 M INH (09:50)
[2021-07-11] MEDS ORDERED: SINGULAIR 10 MG10 M1 PO (09:50)
[2021-07-11] MEDS ORDERED: NORCO 10-325 T1 EACH PO (09:50)
[2021-07-11] MEDS ORDERED: ENOXAPARIN40 MG/0.4 SUBQ (09:50)
[2021-07-11] MEDS ORDERED: LASIX 40 MG TAB40 M1 PO (09:50)
[2021-07-11] MEDS ORDERED: MIRALAX17 GM PO (09:50)
[2021-07-11 16:00] VITALS: BP 127/37; BP 133/59
== END 2021-07-11 18:45 | DRG 4 ==
LOC: M.ERS 04:03 → M.TBA-ER 06:51 → M.ICU 06:51 → M.2W 07-04 19:00 → M.ORTHSURG 07-10 20:18
PROVIDERS: Internal Medicine; Internal Medicine Cardiovascular Disease; Internal Medicine Critical Care Medicine; Internal Medicine Nephrology; Nurse Practitioner Family; Pediatrics; Personal Emergency Response Attendant; Psychiatry & Neurology Neuromuscular Medicine; Registered Nurse; ADMIT Internal Medicine; ATTEND Internal Medicine
PROC: 02HV33Z Insertion of Infusion Device into Superior Vena Cava, Percutaneous Approach (ICD-10-PCS; principal; 2021-06-12)
PROC: 0B110F4 Bypass Trachea to Cutaneous with Tracheostomy Device, Open Approach (ICD-10-PCS; principal; 2021-06-12)
PROC: 5A1955Z Respiratory Ventilation, Greater than 96 Consecutive Hours (ICD-10-PCS; principal; 2021-06-12)
PROC: 03HY32Z Insertion of Monitoring Device into Upper Artery, Percutaneous Approach (ICD-10-PCS; principal; 2021-06-12)
PROC: 0W9930Z Drainage of Right Pleural Cavity with Drainage Device, Percutaneous Approach (ICD-10-PCS; principal; 2021-06-12)
PROC: B548ZZA Ultrasonography of Superior Vena Cava, Guidance (ICD-10-PCS; principal; 2021-06-12)
PROC: B24BZZ4 Ultrasonography of Heart with Aorta, Transesophageal (ICD-10-PCS; 2021-06-26)
PROC: 30233N1 Transfusion of Nonautologous Red Blood Cells into Peripheral Vein, Percutaneous Approach (ICD-10-PCS; 2021-06-26)
PROC: 5A09357 Assistance with Respiratory Ventilation, Less than 24 Consecutive Hours, Continuous Positive Airway Pressure (ICD-10-PCS; 2021-06-29)
PROC: 5A09357 Assistance with Respiratory Ventilation, Less than 24 Consecutive Hours, Continuous Positive Airway Pressure (ICD-10-PCS; 2021-06-30)
PROC: 5A09357 Assistance with Respiratory Ventilation, Less than 24 Consecutive Hours, Continuous Positive Airway Pressure (ICD-10-PCS; 2021-07-01)
DX: J96.02 Acute respiratory failure with hypercapnia (principal); J18.9 Pneumonia, unspecified organism; I50.33 Acute on chronic diastolic (congestive) heart failure; I47.2 Ventricular tachycardia; J93.83 Other pneumothorax; I48.19 Other persistent atrial fibrillation; E87.2 Acidosis; I42.9 Cardiomyopathy, unspecified; N17.9 Acute kidney failure, unspecified; D68.9 Coagulation defect, unspecified; J98.11 Atelectasis; G72.81 Critical illness myopathy; K92.2 Gastrointestinal hemorrhage, unspecified; J44.0 Chronic obstructive pulmonary disease with (acute) lower respiratory infection; J96.01 Acute respiratory failure with hypoxia; F41.9 Anxiety disorder, unspecified; I95.9 Hypotension, unspecified; R74.01 Elevation of levels of liver transaminase levels; R73.9 Hyperglycemia, unspecified; E66.9 Obesity, unspecified; I48.0 Paroxysmal atrial fibrillation; I11.0 Hypertensive heart disease with heart failure; D64.9 Anemia, unspecified; I49.5 Sick sinus syndrome; E87.70 Fluid overload, unspecified; Z79.82 Long term (current) use of aspirin; Z90.5 Acquired absence of kidney; Z90.710 Acquired absence of both cervix and uterus; I25.2 Old myocardial infarction; Z91.041 Radiographic dye allergy status; Z68.32 Body mass index [BMI] 32.0-32.9, adult; Z79.899 Other long term (current) drug therapy

== ENCOUNTER 2021-07-11 17:30 | Inpatient (IN) | payer OTHER ==
[~2021-07-11] VITALS: Ht 165.1 cm; Wt 88.5 kg
[~2021-07-11 17:30] MED LIST changes: +BROVANA15 MCG/2 M INH; +ENOXAPARIN40 MG/0.4 SUBQ; +LASIX 40 MG TAB40 M1 PO; +MIRALAX17 GM PO; +MUPIROCIN22 GM TOP; +NEXIUM40 MG PO; +NORCO 10-325 T1 EACH PO; +OYSTER SHELL C500 MG PO; +PULMICORT0.5 MG/2 M INH; +SINGULAIR 10 MG10 M1 PO
[2021-07-11 19:00] VITALS: BP 125/61
[2021-07-12 05:45] LABS: HEMATOCRIT 24.3 % (37.0-47.0); MCH 31.5 pg (26.0-34.0); MCHC 32.8 g/dL (28.0-37.0); MCV 96.1 fL (80.0-100.0); MPV 10.5 fl. (7.2-11.1); RBC 2.53 mil/uL (4.20-5.00); WBC 6.3 thou/uL (4.0-11.0)
[2021-07-12 05:53] LABS: ALBUMIN 2.2 g/dL (3.4-5.0); CALCIUM 8.2 mg/dL (8.5-10.1); CREATININE 0.8 mg/dL (0.6-1.3); POTASSIUM 3.9 mmol/L (3.5-5.1); TOTAL BILIRUBIN 0.8 mg/dL (<0.1-1.0); TOTAL PROTEIN 5.4 g/dL (6.4-8.2)
[2021-07-12 07:40] VITALS: BP 111/49
[2021-07-12 20:21] VITALS: BP 123/55
[2021-07-13 08:21] VITALS: BP 108/48
[2021-07-13 20:00] VITALS: BP 97/47
[2021-07-14 09:00] VITALS: BP 101/51
[2021-07-14 20:31] VITALS: BP 95/45
[2021-07-15 06:00] LABS: ALBUMIN 2.1 g/dL (3.4-5.0); CALCIUM 8.2 mg/dL (8.5-10.1); CREATININE 0.9 mg/dL (0.6-1.3); POTASSIUM 3.8 mmol/L (3.5-5.1); TOTAL BILIRUBIN 0.8 mg/dL (<0.1-1.0); TOTAL PROTEIN 5.8 g/dL (6.4-8.2)
[2021-07-15 07:41] VITALS: BP 102/47
[2021-07-15 07:59] LABS: HEMATOCRIT 21.4 % (37.0-47.0); MCH 31.3 pg (26.0-34.0); MCHC 32.7 g/dL (28.0-37.0); MCV 95.6 fL (80.0-100.0); MPV 10.8 fl. (7.2-11.1); NUCLEATED RBCS 0 /100WBC; PLATELET COUNT* 147 thou/uL (150-400); RBC 2.24 mil/uL (4.20-5.00); RDW-CV 16.1 % (10.5-14.5)
[2021-07-15 09:26] LABS: ABSOLUTE LYMPHOCYTES 0.5 thou/uL (0.8-5.3); ABSOLUTE MONOCYTES 0.3 thou/uL (0.0-1.2); ABSOLUTE NEUTROPHILS 8.2 thou/uL (1.6-8.1); MYELOCYTES 2 %
[2021-07-15 09:27] LABS: HYPOCHROMASIA 1+; MICROCYTES 1+; PLATELET ESTIMATE DECREASED
[2021-07-15 19:45] VITALS: BP 101/43
[2021-07-16 07:02] LABS: HEMATOCRIT 20.7 % (37.0-47.0)
[2021-07-16 08:00] VITALS: BP 113/81
[2021-07-16 08:02] LABS: HEMOGLOBIN 6.8 gm/dL (12.0-15.0)
[2021-07-16 14:20] VITALS: BP 101/42; BP 102/38; BP 109/46; BP 99/42
[2021-07-16 19:00] VITALS: BP 115/51
[2021-07-16 19:56] VITALS: BP 115/57
== END 2021-07-17 | disposition home or self-care (01) | DRG 91 ==
LOC: M.REH 17:30
PROVIDERS: Internal Medicine; ADMIT Physical Medicine & Rehabilitation; ATTEND Physical Medicine & Rehabilitation
PROC: 0DJ08ZZ Inspection of Upper Intestinal Tract, Via Natural or Artificial Opening Endoscopic (ICD-10-PCS; principal; 2021-07-17)
PROC: 30233N1 Transfusion of Nonautologous Red Blood Cells into Peripheral Vein, Percutaneous Approach (ICD-10-PCS; principal; 2021-07-17)
PROC: 5A09357 Assistance with Respiratory Ventilation, Less than 24 Consecutive Hours, Continuous Positive Airway Pressure (ICD-10-PCS; 2021-07-17)
PROC: B54NZZA Ultrasonography of Left Upper Extremity Veins, Guidance (ICD-10-PCS; 2021-07-17)
PROC: 0DB68ZX Excision of Stomach, Via Natural or Artificial Opening Endoscopic, Diagnostic (ICD-10-PCS; 2021-07-17)
PROC: 05HC33Z Insertion of Infusion Device into Left Basilic Vein, Percutaneous Approach (ICD-10-PCS; 2021-07-17)
PROC: 0DBL8ZZ Excision of Transverse Colon, Via Natural or Artificial Opening Endoscopic (ICD-10-PCS; 2021-07-17)
PROC: 4B02XTZ Measurement of Cardiac Defibrillator, External Approach (ICD-10-PCS; 2021-07-17)
DX: G72.81 Critical illness myopathy (principal); J96.01 Acute respiratory failure with hypoxia; J15.6 Pneumonia due to other Gram-negative bacteria; K72.00 Acute and subacute hepatic failure without coma; I50.33 Acute on chronic diastolic (congestive) heart failure; L03.313 Cellulitis of chest wall; I42.1 Obstructive hypertrophic cardiomyopathy; D68.69 Other thrombophilia; E87.2 Acidosis; D62 Acute posthemorrhagic anemia; J93.9 Pneumothorax, unspecified; G82.20 Paraplegia, unspecified; J98.11 Atelectasis; J44.0 Chronic obstructive pulmonary disease with (acute) lower respiratory infection; J91.8 Pleural effusion in other conditions classified elsewhere; E87.1 Hypo-osmolality and hyponatremia; N17.9 Acute kidney failure, unspecified; K56.41 Fecal impaction; I80.9 Phlebitis and thrombophlebitis of unspecified site; R53.81 Other malaise; F41.9 Anxiety disorder, unspecified; R73.9 Hyperglycemia, unspecified; R13.10 Dysphagia, unspecified; T38.0X5A Adverse effect of glucocorticoids and synthetic analogues, initial encounter; I25.10 Atherosclerotic heart disease of native coronary artery without angina pectoris; E66.9 Obesity, unspecified; I49.5 Sick sinus syndrome; R26.9 Unspecified abnormalities of gait and mobility; G70.89 Other specified myoneural disorders; R19.5 Other fecal abnormalities; F32.A Depression, unspecified; R19.7 Diarrhea, unspecified; K76.0 Fatty (change of) liver, not elsewhere classified; F17.210 Nicotine dependence, cigarettes, uncomplicated; E07.81 Sick-euthyroid syndrome; K29.70 Gastritis, unspecified, without bleeding; K57.30 Diverticulosis of large intestine without perforation or abscess without bleeding; Y83.8 Other surgical procedures as the cause of abnormal reaction of the patient, or of later complication, without mention of misadventure at the time of the procedure; K44.9 Diaphragmatic hernia without obstruction or gangrene; K63.5 Polyp of colon; D50.9 Iron deficiency anemia, unspecified; K64.8 Other hemorrhoids; K64.4 Residual hemorrhoidal skin tags; I11.0 Hypertensive heart disease with heart failure; E78.5 Hyperlipidemia, unspecified; R74.01 Elevation of levels of liver transaminase levels; I48.0 Paroxysmal atrial fibrillation; G62.9 Polyneuropathy, unspecified; E80.6 Other disorders of bilirubin metabolism; Z95.810 Presence of automatic (implantable) cardiac defibrillator; Z90.710 Acquired absence of both cervix and uterus; Z91.041 Radiographic dye allergy status; Z79.899 Other long term (current) drug therapy; I25.2 Old myocardial infarction; Z95.5 Presence of coronary angioplasty implant and graft; Z90.5 Acquired absence of kidney; Z86.73 Personal history of transient ischemic attack (TIA), and cerebral infarction without residual deficits; Z90.49 Acquired absence of other specified parts of digestive tract; Z68.32 Body mass index [BMI] 32.0-32.9, adult; Y92.89 Other specified places as the place of occurrence of the external cause; Z87.01 Personal history of pneumonia (recurrent); Z88.8 Allergy status to other drugs, medicaments and biological substances; Z86.16 Personal history of COVID-19; Z86.74 Personal history of sudden cardiac arrest